=== PATIENT | female | born 1980 | race Two or more races ===

== ENCOUNTER 2020-04-05 20:17 | Emergency (ER) | payer MEDICARE, MEDICAID ==
[~2020-04-05] VITALS: Ht 170.2 cm; Wt 81.6 kg
[2020-04-05 22:12] LABS: Basophils # (auto) 0.1 10 ^3/uL (0-0.2); Basophils % (auto) 0.6 % (0.0-2.0); Hemoglobin 8.8 g/dL (12.2-16.2); Monocytes # (auto) 0.7 10 ^3/uL (0-1.3); White Blood Cell 21.3 10^3/uL (4.4-10.8)
[2020-04-05 22:14] LABS: Eosinophils # (auto) 0 10 ^3/uL (0-0.8); Eosinophils % (auto) 0.2 % (0.0-7.0); Hematocrit 26.7 % (36.0-46.0); Lymphocytes # (auto) 1.3 10 ^3/uL (0.4-5.4); Lymphocytes % (auto) 6.1 % (10.0-50.0); Mean Corpuscular Hemoglobin 29.6 pg (28.0-32.0); Mean Corpuscular Hgb Conc. 33.1 g/dL (32.0-36.0); Mean Corpuscular Volume 89.5 fL (80.0-100.0); Monocytes % (auto) 3.1 % (0.0-12.0); Neutrophils # (auto) 19.2 10 ^3/uL (1.6-8.6); Platelet Count (auto) 481 10^3/uL (140-450); Red Blood Cells 2.99 10^6/uL (4.0-5.20); Red Cell Distribution Width 14.8 % (11.8-14.3)
[2020-04-05 22:31] LABS: BUN/Creatinine Ratio 5.8; Calcium 8.7 mg/dL (8.5-10.1); Potassium 3.6 mmol/L (3.5-5.1)
[2020-04-05 22:33] LABS: Bilirubin, Total 0.4 mg/dL (0.2-1.0); Total Protein 8.4 g/dL (6.4-8.2)
[2020-04-05 23:34] LABS: Urine Bacteria FEW /hpf (None Seen); Urine Blood 1+ /uL (Negative); Urine Specific Gravity 1.013 (1.001-1.035); Urine WBC 81 /hpf (0 - 5)
[2020-04-06 05:35] VITALS: BP 163/89
== END 2020-04-06 00:30 | disposition left against medical advice (07) ==
LOC: ER 20:17
DX: R10.30 Lower abdominal pain, unspecified (principal); Z53.21 Procedure and treatment not carried out due to patient leaving prior to being seen by health care provider
CPT/HCPCS: 36415; 80053; 81001; 85025

== ENCOUNTER 2021-03-03 13:44 | Inpatient (IN) | payer MEDICARE, MEDICAID ==
[~2021-03-03] VITALS: Ht 170.2 cm; Wt 80.0 kg
[2021-03-03] MEDS ORDERED: ONDANSETRON HCL 4 MG/2 ML VIAL IV ONE ×2 (14:00→16:00)
[2021-03-03 14:22] LABS: Basophils % (auto) 1.2 % (0.0-2.0)
[2021-03-03 14:23] LABS: Basophils # (auto) 0.2 10 ^3/uL (0-0.2); Eosinophils # (auto) 0.3 10 ^3/uL (0-0.8); Eosinophils % (auto) 1.6 % (0.0-7.0); Hematocrit 24.6 % (36.0-46.0); Hemoglobin 8.4 g/dL (12.2-16.2); Lymphocytes # (auto) 1.6 10 ^3/uL (0.4-5.4); Lymphocytes % (auto) 7.5 % (10.0-50.0); Mean Corpuscular Hemoglobin 29.7 pg (28.0-32.0); Mean Corpuscular Volume 87.3 fL (80.0-100.0); Monocytes # (auto) 1.3 10 ^3/uL (0-1.3); Monocytes % (auto) 6.3 % (0.0-12.0); Neutrophils # (auto) 17.3 10 ^3/uL (1.6-8.6); Neutrophils % (auto) 83.4 % (37.0-80.0); Platelet Count (auto) 659 10^3/uL (140-450); Red Blood Cells 2.82 10^6/uL (4.0-5.20); Red Cell Distribution Width 14.7 % (11.8-14.3); White Blood Cell 20.7 10^3/uL (4.4-10.8)
[2021-03-03 14:37] LABS: INR 1.02 (0.9-1.15); Partial Thromboplastin Time 25.2 sec (23.0-31.2)
[2021-03-03 14:42] LABS: Albumin 2.6 g/dL (3.4-5.0); Calcium 9.1 mg/dL (8.5-10.1); Potassium 3.8 mmol/L (3.5-5.1)
[2021-03-03] MEDS ORDERED: SODIUM CHLORIDE 0.9% 1,000 ML IVB ONE (14:45)
[2021-03-03 14:46] LABS: BUN/Creatinine Ratio 5.9; Bilirubin, Total 0.3 mg/dL (0.2-1.0); Total Protein 8.4 g/dL (6.4-8.2)
[2021-03-03] MEDS ORDERED: MORPHINE SULF INJ 2 MG/ML SYRINGE 1ML IV ONE (16:00)
[2021-03-03] MEDS ORDERED: SODIUM CHLORIDE 0.9% 1,000 ML IV ONE (17:45)
[2021-03-03] MEDS ORDERED: CLINDAMYCIN 600MG IV 50 ML IV ONE (17:45)
[2021-03-03] MEDS ORDERED: MORPHINE SULF INJ 2 MG/ML SYRINGE 1ML IV PRN (22:00)
[2021-03-03] MEDS ORDERED: ACETAMINOPHEN 325 MG TAB PO PRN ×2 (22:00)
[2021-03-03] MEDS ORDERED: NITROGLYCERIN 0.4 MG SL TAB SL PRN (22:00)
[2021-03-03] MEDS ORDERED: FAMOTIDINE 20 MG TAB PO SCH (22:00)
[2021-03-03] MEDS: InsuLIN REG 1unit/0.01ml Soln (100units/ml) SC SCH (22:00)
[2021-03-03] MEDS ORDERED: DEXTROSE (50%) 50ML SYRG IV ONE (22:00)
[2021-03-03] MEDS ORDERED: VANCOMYCIN PER PHARMACY 0 MG IV SCH (22:15)
[2021-03-03] MEDS ORDERED: VANCOMYCIN 1GM/250ML 250 ML IV ONE ×2 (22:45→23:00)
[2021-03-03] MEDS: ACCU-CHEK COMFORT CURVE STRIP VI SCH (23:11)
[2021-03-04 05:48] LABS: Eosinophils # (auto) 0.4 10 ^3/uL (0-0.8); Hemoglobin 7.2 g/dL (12.2-16.2); Lymphocytes # (auto) 1.7 10 ^3/uL (0.4-5.4); Monocytes # (auto) 1.3 10 ^3/uL (0-1.3)
[2021-03-04 05:51] LABS: Basophils # (auto) 0.1 10 ^3/uL (0-0.2); Basophils % (auto) 0.8 % (0.0-2.0); Eosinophils % (auto) 2.4 % (0.0-7.0); Hematocrit 21.4 % (36.0-46.0); Lymphocytes % (auto) 9.7 % (10.0-50.0); Mean Corpuscular Hemoglobin 29.8 pg (28.0-32.0); Mean Corpuscular Hgb Conc. 33.5 g/dL (32.0-36.0); Mean Corpuscular Volume 89.1 fL (80.0-100.0); Monocytes % (auto) 7.6 % (0.0-12.0); Neutrophils # (auto) 13.6 10 ^3/uL (1.6-8.6); Neutrophils % (auto) 79.5 % (37.0-80.0); Platelet Count (auto) 506 10^3/uL (140-450); Red Cell Distribution Width 14.7 % (11.8-14.3); White Blood Cell 17.1 10^3/uL (4.4-10.8)
[2021-03-04] MEDS: ACCU-CHEK COMFORT CURVE STRIP VI SCH ×4 (06:17→20:54)
[2021-03-04] MEDS: InsuLIN REG 1unit/0.01ml Soln (100units/ml) SC SCH ×4 (06:17→20:59)
[2021-03-04] MEDS: HYDROcodone-ACET 5/325MG TAB PO PRN ×2 (06:18→12:10)
[2021-03-04 06:21] LABS: Albumin 2.2 g/dL (3.4-5.0); Calcium 7.6 mg/dL (8.5-10.1); Potassium 3.7 mmol/L (3.5-5.1)
[2021-03-04 06:27] LABS: Bilirubin, Total 0.3 mg/dL (0.2-1.0)
[2021-03-04 09:14] VITALS: BP 154/76
[2021-03-04] MEDS ORDERED: cefTRIAXone 1GM/50ML D5W 50 ML IV SCH (10:00)
[2021-03-04] MEDS ORDERED: FERR1TAB17 PO (12:20)
[2021-03-04] MEDS ORDERED: METO-289 PO (12:20)
[2021-03-04] MEDS ORDERED: CILO100T PO (12:20)
[2021-03-04] MEDS ORDERED: FERR-20 PO (12:31)
[2021-03-04] MEDS ORDERED: NIFE90TA49 PO (12:31)
[2021-03-04] MEDS ORDERED: CIPR500T4 PO (12:31)
[2021-03-04] MEDS ORDERED: CALC0.5C PO (12:31)
[2021-03-04] MEDS ORDERED: LOSA-69 PO (12:31)
[2021-03-04] MEDS ORDERED: LEVO75TA6 PO (12:31)
[2021-03-04] MEDS ORDERED: CLOP75TA70 PO (12:31)
[2021-03-04] MEDS ORDERED: ATOR40TA52 PO (12:31)
[2021-03-04 13:00] VITALS: BP 169/82
[2021-03-04] MEDS ORDERED: ACETAMINOPHEN 325 MG TAB PO PRN (13:00)
[2021-03-04] MEDS: hydrALAZINE HCL 20 MG/ML VL IV PRN ×2 (14:33→21:03)
[2021-03-04 15:12] VITALS: BP 116/70
[2021-03-04 16:43] VITALS: BP 126/70
[2021-03-04] MEDS: traMADol HCL 50 MG TAB PO PRN (18:24)
[2021-03-04] MEDS: PANTOPRAZOLE 40 MG TAB PO SCH (20:53)
[2021-03-04] MEDS: METOCLOPRAMIDE HCL 5MG/ml INJ 2ml VIAL IV SCH (20:53)
[2021-03-04 22:05] VITALS: BP 174/82
[2021-03-04 22:32] LABS: Urine Bacteria MOD /hpf (None Seen); Urine Blood 3+ /uL (Negative); Urine Hyaline Cast FEW /lpf (0 - 2); Urine Specific Gravity 1.012 (1.001-1.035); Urine WBC 29 /hpf (0 - 5)
[2021-03-05 05:21] VITALS: BP 173/89
[2021-03-05 05:57] LABS: Basophils # (auto) 0.2 10 ^3/uL (0-0.2); Eosinophils # (auto) 0.4 10 ^3/uL (0-0.8); Eosinophils % (auto) 2.2 % (0.0-7.0); Hematocrit 23.6 % (36.0-46.0); Hemoglobin 7.9 g/dL (12.2-16.2); Lymphocytes # (auto) 1.2 10 ^3/uL (0.4-5.4); Lymphocytes % (auto) 6.6 % (10.0-50.0); Mean Corpuscular Hemoglobin 29.6 pg (28.0-32.0); Mean Corpuscular Hgb Conc. 33.5 g/dL (32.0-36.0); Mean Corpuscular Volume 88.4 fL (80.0-100.0); Monocytes # (auto) 1.3 10 ^3/uL (0-1.3); Monocytes % (auto) 6.9 % (0.0-12.0); Neutrophils # (auto) 15.1 10 ^3/uL (1.6-8.6); Neutrophils % (auto) 83.3 % (37.0-80.0); Platelet Count (auto) 551 10^3/uL (140-450); Red Blood Cells 2.67 10^6/uL (4.0-5.20); Red Cell Distribution Width 14.9 % (11.8-14.3); White Blood Cell 18.1 10^3/uL (4.4-10.8)
[2021-03-05] MEDS: ACCU-CHEK COMFORT CURVE STRIP VI SCH ×4 (06:02→21:52)
[2021-03-05] MEDS: InsuLIN REG 1unit/0.01ml Soln (100units/ml) SC SCH ×4 (06:02→21:52)
[2021-03-05 06:48] VITALS: BP 153/80
[2021-03-05] MEDS: traMADol HCL 50 MG TAB PO PRN (07:55)
[2021-03-05 09:00] VITALS: BP 158/81
[2021-03-05] MEDS: METOCLOPRAMIDE HCL 5MG/ml INJ 2ml VIAL IV SCH ×3 (10:22→21:51)
[2021-03-05] MEDS: GABAPENTIN 300 MG CAP PO SCH ×2 (10:22→21:52)
[2021-03-05] MEDS: PANTOPRAZOLE 40 MG TAB PO SCH ×2 (10:22→21:52)
[2021-03-05] MEDS ORDERED: PROMETHAZINE HCL 25 MG/ML 1ML IV PRN (11:15)
[2021-03-05 13:00] VITALS: BP 144/86
[2021-03-05 17:10] VITALS: BP 148/80
[2021-03-05] MEDS: PERITONEAL DIALYSIS 2.5% SOLN 2,000 ML IP SCH (17:41)
[2021-03-05 22:19] VITALS: BP 153/109
[2021-03-06] MEDS: PERITONEAL DIALYSIS 2.5% SOLN 2,000 ML IP SCH ×4 (00:05→18:31)
[2021-03-06 05:04] VITALS: BP 130/74
[2021-03-06 06:04] LABS: % Iron Saturation 29.3 % (15-50)
[2021-03-06] MEDS: InsuLIN REG 1unit/0.01ml Soln (100units/ml) SC SCH ×4 (06:37→21:17)
[2021-03-06] MEDS: ACCU-CHEK COMFORT CURVE STRIP VI SCH ×4 (06:37→21:17)
[2021-03-06 09:00] VITALS: BP 146/83
[2021-03-06] MEDS: METOCLOPRAMIDE HCL 5MG/ml INJ 2ml VIAL IV SCH ×2 (10:00→21:16)
[2021-03-06] MEDS: PANTOPRAZOLE 40 MG TAB PO SCH ×2 (10:00→21:16)
[2021-03-06] MEDS: GABAPENTIN 300 MG CAP PO SCH ×2 (10:01→21:16)
[2021-03-06 13:00] VITALS: BP 118/74
[2021-03-06] MEDS: traMADol HCL 50 MG TAB PO PRN (16:11)
[2021-03-06 17:17] VITALS: BP 137/74
[2021-03-06 22:00] VITALS: BP 139/81
[2021-03-07 05:00] VITALS: BP 137/72
[2021-03-07] MEDS: PERITONEAL DIALYSIS 2.5% SOLN 2,000 ML IP SCH ×4 (06:34→18:29)
[2021-03-07] MEDS: InsuLIN REG 1unit/0.01ml Soln (100units/ml) SC SCH ×4 (07:00→21:04)
[2021-03-07] MEDS: ACCU-CHEK COMFORT CURVE STRIP VI SCH ×4 (07:05→20:56)
[2021-03-07 09:00] VITALS: BP 138/84
[2021-03-07] MEDS: PANTOPRAZOLE 40 MG TAB PO SCH ×2 (10:46→20:56)
[2021-03-07] MEDS: GABAPENTIN 300 MG CAP PO SCH ×2 (10:47→20:55)
[2021-03-07] MEDS: METOCLOPRAMIDE HCL 5MG/ml INJ 2ml VIAL IV SCH ×2 (10:47→20:55)
[2021-03-07] MEDS: ONDANSETRON HCL 4 MG/2 ML VIAL IV PRN (12:27)
[2021-03-07 13:00] VITALS: BP 115/74
[2021-03-07 17:00] VITALS: BP 133/82
[2021-03-07 22:00] VITALS: BP 131/59
[2021-03-08] MEDS: PERITONEAL DIALYSIS 2.5% SOLN 2,000 ML IP SCH ×4 (00:28→12:05)
[2021-03-08 05:00] VITALS: BP 133/80
[2021-03-08 05:49] LABS: Basophils # (auto) 0.1 10 ^3/uL (0-0.2); Basophils % (auto) 0.8 % (0.0-2.0); Eosinophils # (auto) 0.4 10 ^3/uL (0-0.8); Eosinophils % (auto) 2.3 % (0.0-7.0); Hematocrit 22.3 % (36.0-46.0); Hemoglobin 7.6 g/dL (12.2-16.2); Lymphocytes # (auto) 1.4 10 ^3/uL (0.4-5.4); Lymphocytes % (auto) 8.5 % (10.0-50.0); Mean Corpuscular Hemoglobin 30.1 pg (28.0-32.0); Mean Corpuscular Hgb Conc. 34.2 g/dL (32.0-36.0); Monocytes # (auto) 1.3 10 ^3/uL (0-1.3); Monocytes % (auto) 7.8 % (0.0-12.0); Neutrophils # (auto) 13.5 10 ^3/uL (1.6-8.6); Neutrophils % (auto) 80.6 % (37.0-80.0); Platelet Count (auto) 469 10^3/uL (140-450); Red Blood Cells 2.53 10^6/uL (4.0-5.20); Red Cell Distribution Width 14.8 % (11.8-14.3); White Blood Cell 16.8 10^3/uL (4.4-10.8)
[2021-03-08] MEDS: InsuLIN REG 1unit/0.01ml Soln (100units/ml) SC SCH ×2 (06:09→11:51)
[2021-03-08] MEDS: ACCU-CHEK COMFORT CURVE STRIP VI SCH ×2 (06:10→11:48)
[2021-03-08 06:17] LABS: BUN/Creatinine Ratio 5.9; Calcium 7.8 mg/dL (8.5-10.1); Potassium 3.8 mmol/L (3.5-5.1)
[2021-03-08 09:00] VITALS: BP 121/74
[2021-03-08] MEDS: PANTOPRAZOLE 40 MG TAB PO SCH (09:23)
[2021-03-08] MEDS: METOCLOPRAMIDE HCL 5MG/ml INJ 2ml VIAL IV SCH (09:23)
[2021-03-08] MEDS: GABAPENTIN 300 MG CAP PO SCH (09:23)
[2021-03-08] MEDS: ONDANSETRON HCL 4 MG/2 ML VIAL IV PRN (11:52)
[2021-03-08 13:00] VITALS: BP 110/66
[2021-03-08] MEDS ORDERED: METOCLOPRAMIDE HCL 10 MG TAB PO SCH (14:00)
[2021-03-08 14:42] VITALS: BP 110/66
== END 2021-03-08 16:20 | disposition home or self-care (01) | DRG 637 ==
LOC: EDBD 13:44 → ER 13:44 → TELE 21:51 → TELE-WESTW 23:10
PROVIDERS: ADMIT Nurse Practitioner; ATTEND Nurse Practitioner
DX: E11.69 Type 2 diabetes mellitus with other specified complication (principal); G93.41 Metabolic encephalopathy; K85.90 Acute pancreatitis without necrosis or infection, unspecified; D68.9 Coagulation defect, unspecified; N39.0 Urinary tract infection, site not specified; I12.0 Hypertensive chronic kidney disease with stage 5 chronic kidney disease or end stage renal disease; K31.84 Gastroparesis; N18.6 End stage renal disease; E11.43 Type 2 diabetes mellitus with diabetic autonomic (poly)neuropathy; R11.14 Bilious vomiting; Z99.2 Dependence on renal dialysis; D47.3 Essential (hemorrhagic) thrombocythemia; Z89.429 Acquired absence of other toe(s), unspecified side; E78.5 Hyperlipidemia, unspecified; D64.9 Anemia, unspecified; D63.1 Anemia in chronic kidney disease; E11.22 Type 2 diabetes mellitus with diabetic chronic kidney disease; E11.51 Type 2 diabetes mellitus with diabetic peripheral angiopathy without gangrene; F17.200 Nicotine dependence, unspecified, uncomplicated; F41.9 Anxiety disorder, unspecified; G25.3 Myoclonus; G54.6 Phantom limb syndrome with pain; K29.70 Gastritis, unspecified, without bleeding; F32.9 Major depressive disorder, single episode, unspecified; Z83.3 Family history of diabetes mellitus; Z89.422 Acquired absence of other left toe(s); Z79.899 Other long term (current) drug therapy; Z79.891 Long term (current) use of opiate analgesic; Z79.01 Long term (current) use of anticoagulants
CPT/HCPCS: 36415; 71045; 74176; 76705; 78264; 80048; 80053; 80202; 81001; 82565; 82962; 83540; 83550; 83605; 83690; 83735; 84702; 85025; 85049; 85610; 85730; 87040; 87081; 87426; 96361; 96374; 96375; 99291; G0378; J1815; J2405; J3490

== ENCOUNTER 2021-09-16 17:26 | Emergency (ER) | payer MEDICARE, MEDICAID ==
[~2021-09-16] VITALS: Ht 152.4 cm; Wt 56.7 kg
[~2021-09-16 17:26] MED LIST: ATOR40TA52 PO; CALC0.5C PO; CILO100T PO; CIPR500T4 PO; CLOP75TA70 PO; FERR-20 PO; FERR1TAB17 PO; LEVO75TA6 PO; LOSA-69 PO; METO-289 PO; NIFE90TA49 PO
[2021-09-16 22:37] LABS: Red Blood Cells 2.32 10^6/uL (4.0-5.20)
[2021-09-16 22:40] LABS: Hematocrit 20.9 % (36.0-46.0); Mean Corpuscular Hemoglobin 28.9 pg (28.0-32.0); Mean Corpuscular Hgb Conc. 32.1 g/dL (32.0-36.0); Mean Corpuscular Volume 90.1 fL (80.0-100.0); Red Cell Distribution Width 14.9 % (11.8-14.3)
[2021-09-16 22:48] LABS: Hemoglobin 6.7 g/dL (12.2-16.2); White Blood Cell 30.8 10^3/uL (4.4-10.8)
[2021-09-16 22:50] LABS: Basophils % (manual) 0 (0.0-2.0); Blast Cells 0; Eosinophils % (manual) 0 (0-7); Metamyelocytes % 0; Myelocytes % 0; Promyelocytes % 0; Reactive Lymphocytes 0
[2021-09-16 22:59] LABS: Albumin 1.6 g/dL (3.4-5.0); Anion Gap 20 (5-15); Blood Urea Nitrogen 65 mg/dL (7-18); Calcium 9.4 mg/dL (8.5-10.1); Carbon Dioxide 26 mmol/L (21-32); Chloride 86 mmol/L (98-107); Glucose 114 mg/dL (74-106); Sodium 132 mmol/L (136-145)
[2021-09-16 23:01] LABS: Alanine Aminotransferase 16 U/L (13-56); Aspartate Aminotransferase 5 U/L (15-37); BUN/Creatinine Ratio 9.3; GFR African American 8 mL/min; GFR Non-African American 7 mL/min
[2021-09-16 23:04] LABS: Alkaline Phosphatase 464 U/L (45-117); Bilirubin, Total 0.4 mg/dL (0.2-1.0); Total Protein 6.1 g/dL (6.4-8.2)
[2021-09-16 23:11] LABS: Potassium 2.9 mmol/L (3.5-5.1)
[2021-09-16 23:15] LABS: CRP High Sensitivity > 19.0 mg/dL (< 0.3)
[2021-09-16 23:59] LABS: Band Neutrophils % (manual) 9; Lymphocytes % (manual) 3 (10.0-50.0); Monocytes % (manual) 3 (0-12)
[2021-09-17] MEDS ORDERED: VANCOMYCIN 1GM/250ML 250 ML IV ONE
[2021-09-17] MEDS ORDERED: POTASSIUM EFFERVESENT TAB 25 MEQ PO ONE
[2021-09-17] MEDS ORDERED: LINEZOLID 600MG/300ML 300 ML IV ONE (00:34)
[2021-09-17] MEDS: POTASSIUM CHL 20MEQ/50ML 50 ML IV SCH ×2 (00:35→02:40)
[2021-09-17] MEDS: LINEZOLID 600MG/300ML 300 ML IV SCH ×2 (00:36→22:23)
[2021-09-17] MEDS ORDERED: HYDROmorphone HCL 2 MG/ML VL IV ONE ×3 (04:00→09:45)
[2021-09-17] MEDS ORDERED: ONDANSETRON HCL 4 MG/2 ML VIAL IV ONE ×2 (04:15→09:45)
[2021-09-17 05:25] VITALS: BP 125/71
[2021-09-17 05:43] VITALS: BP 124/69
[2021-09-17] MEDS ORDERED: PIPERACILLIN-TAZOB 3.375GM 100 ML IV ONE ×2 (11:45)
[2021-09-17] MEDS ORDERED: CLINDAMYCIN 600MG IV 50 ML IV ONE ×2 (11:45)
[2021-09-17 14:14] LABS: Hemoglobin 7.8 g/dL (12.2-16.2)
[2021-09-17 14:15] LABS: Hematocrit 24.3 % (36.0-46.0); Mean Corpuscular Hemoglobin 28.6 pg (28.0-32.0); Mean Corpuscular Hgb Conc. 32.2 g/dL (32.0-36.0); Mean Corpuscular Volume 88.6 fL (80.0-100.0); Red Blood Cells 2.74 10^6/uL (4.0-5.20); Red Cell Distribution Width 15.2 % (11.8-14.3)
[2021-09-17 14:59] LABS: Basophils % (manual) 0 (0.0-2.0); Blast Cells 0; Eosinophils % (manual) 0 (0-7); Metamyelocytes % 0; Myelocytes % 0; Promyelocytes % 0; Reactive Lymphocytes 0; White Blood Cell 30.3 10^3/uL (4.4-10.8)
[2021-09-17] MEDS ORDERED: HYDROmorphone HCL 2 MG/ML VL IM ONE (17:45)
[2021-09-17 18:39] LABS: Band Neutrophils % (manual) 1; Lymphocytes % (manual) 4 (10.0-50.0); Monocytes % (manual) 4 (0-12)
[2021-09-18] MEDS ORDERED: HYDROmorphone HCL 2 MG/ML VL IV ONE (02:00)
[2021-09-18] MEDS ORDERED: HYDROmorphone HCL 2 MG/ML VL ONE (02:33)
[2021-09-18] MEDS: HYDROmorphone HCL 2 MG/ML VL IV PRN ×3 (08:10→16:16)
[2021-09-18] MEDS: LINEZOLID 600MG/300ML 300 ML IV SCH (11:55)
[2021-09-18] MEDS ORDERED: DEXTROSE 50% SYRINGE 0 ML IV ONE (12:36)
[2021-09-18 16:16] VITALS: BP 163/55
== END 2021-09-18 16:30 | disposition short-term general hospital (02) ==
LOC: ER 17:26 → EDBD 17:26 → ER 09-18 16:30
DX: T87.43 Infection of amputation stump, right lower extremity (principal); E11.22 Type 2 diabetes mellitus with diabetic chronic kidney disease; I12.0 Hypertensive chronic kidney disease with stage 5 chronic kidney disease or end stage renal disease; N18.6 End stage renal disease; Z20.822 Contact with and (suspected) exposure to COVID-19
CPT/HCPCS: 36415; 80053; 82962; 83605; 84132; 84702; 85007; 85027; 85652; 86141; 86850; 86900; 86901; 86920; 87040; 87426; 96365; 96366; 96368; 96372; 96375; 96376; 99291; C9803; J1170; J2020; J2543; J3480; J3490; J7030; P9016; U0003; 73700; J2405

== ENCOUNTER 2023-01-11 11:19 | Inpatient (IN) | payer MEDICARE, MEDICAID ==
[~2023-01-11] VITALS: Ht 165.1 cm; Wt 59.6 kg
[~2023-01-11 11:19] MED LIST changes: +ASPI-325 PO; -CIPR500T4 PO; +DOCU100C10 PO; +LISI40TA11 PO
[2023-01-11] MEDS ORDERED: LORazepam 2MG/ML-1ML VIAL IV ONE (11:30)
[2023-01-11 12:24] LABS: Basophils # (auto) 0.2 10 ^3/uL (0-0.2); Eosinophils # (auto) 0.3 10 ^3/uL (0-0.8); Eosinophils % (auto) 1.8 % (0.0-7.0); Hemoglobin 10.7 g/dL (12.2-16.2); Lymphocytes # (auto) 0.6 10 ^3/uL (0.4-5.4); Monocytes # (auto) 1.3 10 ^3/uL (0-1.3); White Blood Cell 15.7 10^3/uL (4.4-10.8)
[2023-01-11 12:26] LABS: Hematocrit 33.6 % (36.0-46.0); Lymphocytes % (auto) 3.7 % (10.0-50.0); Mean Corpuscular Hemoglobin 28.8 pg (28.0-32.0); Mean Corpuscular Hgb Conc. 31.9 g/dL (32.0-36.0); Mean Corpuscular Volume 90.3 fL (80.0-100.0); Monocytes % (auto) 8.2 % (0.0-12.0); Neutrophils # (auto) 13.4 10 ^3/uL (1.6-8.6); Neutrophils % (auto) 85.3 % (37.0-80.0); Red Blood Cells 3.72 10^6/uL (4.0-5.20); Red Cell Distribution Width 13.6 % (11.8-14.3)
[2023-01-11 12:47] LABS: INR 0.96 (0.9-1.15); Partial Thromboplastin Time 29.9 sec (24.6-33.4)
[2023-01-11] MEDS ORDERED: PIPERACILLIN-TAZOB 3.375GM 100 ML IV ONE (13:00)
[2023-01-11 13:32] LABS: Albumin 2.5 g/dL (3.4-5.0); Anion Gap 12 (5-15); Blood Urea Nitrogen 43 mg/dL (7-18); Calcium 10.2 mg/dL (8.5-10.1); Carbon Dioxide 25 mmol/L (21-32); Chloride 96 mmol/L (98-107); Glucose 87 mg/dL (74-106); Magnesium 2.5 mg/dL (1.6-2.6); Potassium 4.3 mmol/L (3.5-5.1); Sodium 133 mmol/L (136-145)
[2023-01-11 13:44] LABS: Alanine Aminotransferase 8 U/L (13-56); Alkaline Phosphatase 307 U/L (45-117); Aspartate Aminotransferase 12 U/L (15-37); BUN/Creatinine Ratio 8.1 (10.0-20.0); Bilirubin, Total 0.4 mg/dL (0.2-1.0); Blood Alcohol < 3.0 mg/dL (0-5); GFR African American 11 mL/min; GFR Non-African American 9 mL/min; Salicylate 5.8 mg/dL (2.8-20.0); Total Protein 7.9 g/dL (6.4-8.2)
[2023-01-11 13:45] LABS: Acetaminophen < 2.0 ug/mL (10-30)
[2023-01-11] MEDS ORDERED: MORPHINE SULFATE INJ 2 MG/ml SYRG IV PRN (15:30)
[2023-01-11] MEDS ORDERED: NITROGLYCERIN 0.4 MG SL TAB SL PRN (15:30)
[2023-01-11] MEDS ORDERED: ACETAMINOPHEN 325 MG TAB PO PRN (15:30)
[2023-01-11] MEDS ORDERED: VANCOMYCIN PER PHARMACY 0 MG IV SCH (15:45)
[2023-01-11] MEDS ORDERED: PANTOPRAZOLE 40 MG/10 ML VIAL INJ IV ONE (15:45)
[2023-01-11] MEDS: FERROUS SULFATE 325mg EC TAB PO SCH (18:00)
[2023-01-11] MEDS: hydrALAZINE HCL 20 MG/ML VL IV PRN (20:26)
[2023-01-11] MEDS: PIPERACILLIN-TAZOB 2.25GM 50 ML IV SCH (21:56)
[2023-01-11] MEDS: ATORVASTATIN 20 MG TAB PO SCH (22:30)
[2023-01-11] MEDS: METOPROLOL SUCCINATE XL 50 MG TAB PO SCH (22:30)
[2023-01-12] MEDS ORDERED: dilTIAZem 25 MG/5 ML VIAL IV ONE (02:00)
[2023-01-12] MEDS: hydrALAZINE HCL 20 MG/ML VL IV PRN ×3 (02:09→19:57)
[2023-01-12 05:33] LABS: Basophils # (auto) 0.2 10 ^3/uL (0-0.2); Eosinophils # (auto) 0.3 10 ^3/uL (0-0.8); Hemoglobin 10.5 g/dL (12.2-16.2); Lymphocytes # (auto) 0.6 10 ^3/uL (0.4-5.4); Mean Corpuscular Volume 88.9 fL (80.0-100.0); Monocytes # (auto) 1.4 10 ^3/uL (0-1.3); Red Cell Distribution Width 13.6 % (11.8-14.3); White Blood Cell 14.7 10^3/uL (4.4-10.8)
[2023-01-12 05:35] LABS: Basophils % (auto) 1.1 % (0.0-2.0); Eosinophils % (auto) 1.7 % (0.0-7.0); Hematocrit 32.6 % (36.0-46.0); Lymphocytes % (auto) 4.2 % (10.0-50.0); Mean Corpuscular Hemoglobin 28.6 pg (28.0-32.0); Mean Corpuscular Hgb Conc. 32.1 g/dL (32.0-36.0); Monocytes % (auto) 9.8 % (0.0-12.0); Neutrophils # (auto) 12.2 10 ^3/uL (1.6-8.6); Neutrophils % (auto) 83.2 % (37.0-80.0); Nucleated Red Blood Cells % 0.1 %; Red Blood Cells 3.67 10^6/uL (4.0-5.20)
[2023-01-12 05:49] LABS: Albumin 2.3 g/dL (3.4-5.0); Calcium 10.4 mg/dL (8.5-10.1); Potassium 4.4 mmol/L (3.5-5.1)
[2023-01-12 05:53] LABS: BUN/Creatinine Ratio 8.3 (10.0-20.0); Bilirubin, Total 0.4 mg/dL (0.2-1.0); Total Protein 8.2 g/dL (6.4-8.2)
[2023-01-12] MEDS: FERROUS SULFATE 325mg EC TAB PO SCH ×2 (08:37→18:00)
[2023-01-12] MEDS ORDERED: CLOPIDOGREL BISULFATE 75 MG TAB PO SCH (10:00)
[2023-01-12] MEDS: LOSARTAN POTASSIUM 50 MG TAB PO SCH (10:00)
[2023-01-12] MEDS ORDERED: ASPirin-EC 81 mg tab PO SCH (10:00)
[2023-01-12] MEDS ORDERED: CALCITRIOL 0.5 MCG PO SCH (10:00)
[2023-01-12] MEDS: METOPROLOL SUCCINATE XL 50 MG TAB PO SCH ×2 (10:00→22:00)
[2023-01-12] MEDS: NIFEdipine ER 30 MG TAB PO SCH (10:00)
[2023-01-12] MEDS: CILOSTAZOL 100 MG TAB PO SCH (10:00)
[2023-01-12] MEDS ORDERED: ENOXAPARIN SOD 30 MG/0.3 ML SYRINGE SC SCH (10:00)
[2023-01-12] MEDS: PIPERACILLIN-TAZOB 2.25GM 50 ML IV SCH (10:15)
[2023-01-12] MEDS: PANTOPRAZOLE 40 MG/10 ML VIAL INJ IV SCH (10:16)
[2023-01-12] MEDS ORDERED: cloNIDine 0.3 mg/24hr 7DAY PATCH TD SCH (16:15)
[2023-01-12] MEDS: cloNIDine 0.1 mg/24hr 7 DAY PATCH TD SCH (16:15)
[2023-01-12] MEDS ORDERED: DEXTROSE 10% 250 ML IV ONE (16:24)
[2023-01-12] MEDS ORDERED: VANCOMYCIN PER PHARMACY 0 MG IV SCH (16:30)
[2023-01-12] MEDS: DEXTROSE 10% 1,000 ML IV SCH (16:35)
[2023-01-12] MEDS ORDERED: ASPirin 300 MG RECTAL SUPP PR ONE (18:30)
[2023-01-12] MEDS: LABETALOL HCL 5 MG/ML 4ML SYRINGE IV PRN (20:37)
[2023-01-12] MEDS: ATORVASTATIN 20 MG TAB PO SCH (22:00)
[2023-01-12 22:22] VITALS: BP 159/61
[2023-01-12 23:06] VITALS: BP 159/61
[2023-01-13] MEDS: PIPERACILLIN-TAZOB 2.25GM 50 ML IV SCH ×3 (00:52→21:12)
[2023-01-13 05:00] VITALS: BP 172/72
[2023-01-13] MEDS: HEPARIN SODIUM (PORCINE) 5000 UNITS/ML 1ML VIAL SC SCH ×3 (06:42→21:11)
[2023-01-13 06:47] LABS: Hemoglobin 10.3 g/dL (12.2-16.2)
[2023-01-13] MEDS: LEVOTHYROXINE SODIUM 25 MCG TAB PO SCH (06:55)
[2023-01-13] MEDS ORDERED: SODIUM CHL 0.9% 1000 ML BAG XX ONE (07:00)
[2023-01-13] MEDS ORDERED: LEVOTHYROXINE SODIUM 25 MCG TAB PO SCH (07:00)
[2023-01-13] MEDS: LABETALOL HCL 5 MG/ML 4ML SYRINGE IV PRN (07:36)
[2023-01-13] MEDS: FERROUS SULFATE 325mg EC TAB PO SCH ×2 (08:00→17:40)
[2023-01-13 09:00] VITALS: BP 188/78
[2023-01-13] MEDS: METOPROLOL SUCCINATE XL 50 MG TAB PO SCH ×2 (10:00→22:00)
[2023-01-13] MEDS: LOSARTAN POTASSIUM 50 MG TAB PO SCH (10:00)
[2023-01-13] MEDS: NIFEdipine ER 30 MG TAB PO SCH (10:00)
[2023-01-13] MEDS ORDERED: LEVOTHYROXINE SODIUM 100 MCG/5 ML INJ IV SCH (10:00)
[2023-01-13] MEDS: MORPHINE SULFATE 4 MG/ML SYR/VIAL IV PRN (10:14)
[2023-01-13] MEDS: PANTOPRAZOLE 40 MG/10 ML VIAL INJ IV SCH (12:44)
[2023-01-13 13:17] VITALS: BP 140/78
[2023-01-13] MEDS: DEXTROSE 10% 1,000 ML IV SCH (16:15)
[2023-01-13 17:00] VITALS: BP 152/84
[2023-01-13] MEDS: ASPirin 300 MG RECTAL SUPP PR SCH (18:00)
[2023-01-13] MEDS ORDERED: VANCOMYCIN 500 MG in D5W 5% 100 ML IV ONE (20:00)
[2023-01-13] MEDS ORDERED: EPOETIN ALFA-EPBX 4,000 UNIT/ML VIAL SC ONE (21:00)
[2023-01-13 22:00] VITALS: BP 152/80
[2023-01-13] MEDS: ATORVASTATIN 20 MG TAB PO SCH (22:00)
[2023-01-14 05:41] VITALS: BP 142/82
[2023-01-14] MEDS: LEVOTHYROXINE SODIUM 25 MCG TAB PO SCH (06:58)
[2023-01-14] MEDS: HEPARIN SODIUM (PORCINE) 5000 UNITS/ML 1ML VIAL SC SCH ×3 (06:58→22:10)
[2023-01-14] MEDS: FERROUS SULFATE 325mg EC TAB PO SCH ×2 (08:00→17:58)
[2023-01-14 09:00] VITALS: BP 184/82
[2023-01-14] MEDS: PANTOPRAZOLE 40 MG/10 ML VIAL INJ IV SCH (09:33)
[2023-01-14] MEDS: MORPHINE SULFATE 4 MG/ML SYR/VIAL IV PRN ×2 (09:34→17:44)
[2023-01-14] MEDS: PIPERACILLIN-TAZOB 2.25GM 50 ML IV SCH ×2 (09:34→22:09)
[2023-01-14] MEDS: METOPROLOL SUCCINATE XL 50 MG TAB PO SCH ×2 (09:35→22:09)
[2023-01-14] MEDS: NIFEdipine ER 30 MG TAB PO SCH (09:35)
[2023-01-14] MEDS: LOSARTAN POTASSIUM 50 MG TAB PO SCH (09:35)
[2023-01-14 13:00] VITALS: BP 136/85
[2023-01-14 15:40] VITALS: BP 147/78
[2023-01-14] MEDS: DEXTROSE 10% 1,000 ML IV SCH (16:15)
[2023-01-14 16:53] VITALS: BP 136/73
[2023-01-14] MEDS: ASPirin 300 MG RECTAL SUPP PR SCH (17:58)
[2023-01-14 22:00] VITALS: BP 144/74
[2023-01-14] MEDS: ATORVASTATIN 20 MG TAB PO SCH (22:09)
[2023-01-15 05:00] VITALS: BP 139/60
[2023-01-15] MEDS: LEVOTHYROXINE SODIUM 25 MCG TAB PO SCH (06:02)
[2023-01-15] MEDS: HEPARIN SODIUM (PORCINE) 5000 UNITS/ML 1ML VIAL SC SCH ×3 (06:02→21:58)
[2023-01-15 09:00] VITALS: BP 156/65
[2023-01-15] MEDS: PIPERACILLIN-TAZOB 2.25GM 50 ML IV SCH ×2 (09:53→21:51)
[2023-01-15] MEDS: PANTOPRAZOLE 40 MG/10 ML VIAL INJ IV SCH (09:53)
[2023-01-15] MEDS: MORPHINE SULFATE 4 MG/ML SYR/VIAL IV PRN ×3 (09:54→22:23)
[2023-01-15] MEDS: ONDANSETRON HCL 4 MG/2 ML VIAL IV PRN ×3 (09:54→20:52)
[2023-01-15] MEDS: NIFEdipine ER 30 MG TAB PO SCH (09:55)
[2023-01-15] MEDS: FERROUS SULFATE 325mg EC TAB PO SCH ×2 (09:55→17:52)
[2023-01-15] MEDS: LOSARTAN POTASSIUM 50 MG TAB PO SCH (09:55)
[2023-01-15] MEDS: METOPROLOL SUCCINATE XL 50 MG TAB PO SCH ×2 (09:55→21:51)
[2023-01-15 13:00] VITALS: BP 168/78
[2023-01-15 13:25] LABS: Basophils # (auto) 0.2 10 ^3/uL (0-0.2); Eosinophils # (auto) 0.3 10 ^3/uL (0-0.8); Lymphocytes # (auto) 0.9 10 ^3/uL (0.4-5.4)
[2023-01-15 13:27] LABS: Basophils % (auto) 1.6 % (0.0-2.0); Eosinophils % (auto) 2.6 % (0.0-7.0); Hematocrit 31.2 % (36.0-46.0); Hemoglobin 9.9 g/dL (12.2-16.2); Lymphocytes % (auto) 8.1 % (10.0-50.0); Mean Corpuscular Hemoglobin 28.3 pg (28.0-32.0); Mean Corpuscular Hgb Conc. 31.8 g/dL (32.0-36.0); Monocytes # (auto) 1.1 10 ^3/uL (0-1.3); Monocytes % (auto) 9.3 % (0.0-12.0); Neutrophils # (auto) 9.1 10 ^3/uL (1.6-8.6); Neutrophils % (auto) 78.4 % (37.0-80.0); Red Blood Cells 3.51 10^6/uL (4.0-5.20); Red Cell Distribution Width 13.3 % (11.8-14.3); White Blood Cell 11.6 10^3/uL (4.4-10.8)
[2023-01-15 14:01] LABS: Alkaline Phosphatase 206 U/L (45-117); Bilirubin, Total 0.5 mg/dL (0.2-1.0); Glucose 89 mg/dL (74-106)
[2023-01-15] MEDS: CLOPIDOGREL BISULFATE 75 MG TAB PO SCH (14:18)
[2023-01-15] MEDS: ASPirin 81 mg TAB PO SCH (14:18)
[2023-01-15 15:59] LABS: Anion Gap 12 (5-15); Blood Urea Nitrogen 37 mg/dL (7-18); Carbon Dioxide 27 mmol/L (21-32); Chloride 94 mmol/L (98-107); Potassium 3.9 mmol/L (3.5-5.1); Sodium 133 mmol/L (136-145)
[2023-01-15 16:00] LABS: Alanine Aminotransferase < 6 U/L (13-56); Albumin 2.1 g/dL (3.4-5.0); Aspartate Aminotransferase 10 U/L (15-37); GFR African American 11 mL/min; GFR Non-African American 9 mL/min
[2023-01-15] MEDS: DEXTROSE 10% 1,000 ML IV SCH (16:15)
[2023-01-15 17:00] VITALS: BP 144/71
[2023-01-15 20:00] VITALS: BP 143/71
[2023-01-15] MEDS: ATORVASTATIN 20 MG TAB PO SCH (21:51)
[2023-01-15 22:00] VITALS: BP 150/79
[2023-01-16] MEDS: ONDANSETRON HCL 4 MG/2 ML VIAL IV PRN (01:56)
[2023-01-16 05:00] VITALS: BP 125/52
[2023-01-16] MEDS: HEPARIN SODIUM (PORCINE) 5000 UNITS/ML 1ML VIAL SC SCH ×3 (05:36→22:00)
[2023-01-16 05:55] LABS: BUN/Creatinine Ratio 7.2 (10.0-20.0); Calcium 9.7 mg/dL (8.5-10.1); Potassium 4.1 mmol/L (3.5-5.1)
[2023-01-16] MEDS: LEVOTHYROXINE SODIUM 25 MCG TAB PO SCH (06:19)
[2023-01-16] MEDS ORDERED: SODIUM CHL 0.9% 1000 ML BAG XX ONE (07:00)
[2023-01-16 08:00] VITALS: BP 107/52
[2023-01-16] MEDS: LOSARTAN POTASSIUM 50 MG TAB PO SCH (09:00)
[2023-01-16] MEDS: METOPROLOL SUCCINATE XL 50 MG TAB PO SCH ×2 (09:01→22:00)
[2023-01-16] MEDS: NIFEdipine ER 30 MG TAB PO SCH (09:01)
[2023-01-16] MEDS: PIPERACILLIN-TAZOB 2.25GM 50 ML IV SCH (09:09)
[2023-01-16] MEDS: FERROUS SULFATE 325mg EC TAB PO SCH ×2 (09:09→17:45)
[2023-01-16] MEDS: ASPirin 81 mg TAB PO SCH (09:09)
[2023-01-16] MEDS: CILOSTAZOL 100 MG TAB PO SCH (09:09)
[2023-01-16] MEDS: CLOPIDOGREL BISULFATE 75 MG TAB PO SCH (09:09)
[2023-01-16] MEDS: PANTOPRAZOLE 40 MG/10 ML VIAL INJ IV SCH (09:10)
[2023-01-16 12:00] VITALS: BP 108/68
[2023-01-16] MEDS: HYDROcodone-ACET 5/325MG TAB PO PRN (13:51)
[2023-01-16] MEDS: MEROPENEM 1 GM in SODIUM CHL 0.9% 100 ML IV SCH (15:45)
[2023-01-16 16:00] VITALS: BP 139/82
[2023-01-16] MEDS ORDERED: VANCOMYCIN 500 MG in D5W 5% 100 ML IV ONE ×2 (17:00→20:00)
[2023-01-16] MEDS: MORPHINE SULFATE 4 MG/ML SYR/VIAL IV PRN (17:46)
[2023-01-16 20:00] VITALS: BP 137/48
[2023-01-16 22:00] VITALS: BP 137/48
[2023-01-16] MEDS: ATORVASTATIN 20 MG TAB PO SCH (22:00)
[2023-01-17 05:00] VITALS: BP 161/78
[2023-01-17] MEDS: HEPARIN SODIUM (PORCINE) 5000 UNITS/ML 1ML VIAL SC SCH ×4 (06:00→22:20)
[2023-01-17] MEDS: LEVOTHYROXINE SODIUM 25 MCG TAB PO SCH (06:47)
[2023-01-17 09:00] VITALS: BP 152/82
[2023-01-17] MEDS: ASPirin 81 mg TAB PO SCH (09:24)
[2023-01-17] MEDS: FERROUS SULFATE 325mg EC TAB PO SCH ×2 (09:24→17:56)
[2023-01-17] MEDS: CLOPIDOGREL BISULFATE 75 MG TAB PO SCH (09:24)
[2023-01-17] MEDS: LOSARTAN POTASSIUM 50 MG TAB PO SCH (09:24)
[2023-01-17] MEDS: CILOSTAZOL 100 MG TAB PO SCH (09:25)
[2023-01-17] MEDS: METOPROLOL SUCCINATE XL 50 MG TAB PO SCH ×2 (09:25→22:13)
[2023-01-17] MEDS: NIFEdipine ER 30 MG TAB PO SCH (09:25)
[2023-01-17 13:00] VITALS: BP 158/82
[2023-01-17] MEDS: hydrALAZINE HCL 20 MG/ML VL IV PRN (13:00)
[2023-01-17] MEDS: MEROPENEM 1 GM in SODIUM CHL 0.9% 100 ML IV SCH (15:01)
[2023-01-17 20:00] VITALS: BP 105/53
[2023-01-17 22:00] VITALS: BP 105/53
[2023-01-17] MEDS: ATORVASTATIN 20 MG TAB PO SCH (22:13)
[2023-01-17] MEDS: HYDROcodone-ACET 5/325MG TAB PO PRN (22:15)
[2023-01-18] MEDS: HYDROcodone-ACET 5/325MG TAB PO PRN (03:20)
[2023-01-18 05:00] VITALS: BP 127/59
[2023-01-18 05:37] LABS: Hematocrit 28.7 % (36.0-46.0); Hemoglobin 9.2 g/dL (12.2-16.2)
[2023-01-18] MEDS: LEVOTHYROXINE SODIUM 25 MCG TAB PO SCH (06:21)
[2023-01-18] MEDS: HEPARIN SODIUM (PORCINE) 5000 UNITS/ML 1ML VIAL SC SCH ×3 (06:23→22:07)
[2023-01-18] MEDS ORDERED: SODIUM CHL 0.9% 1000 ML BAG XX ONE (07:00)
[2023-01-18] MEDS: FERROUS SULFATE 325mg EC TAB PO SCH ×2 (08:00→17:14)
[2023-01-18] MEDS: NIFEdipine ER 30 MG TAB PO SCH (09:15)
[2023-01-18] MEDS: LOSARTAN POTASSIUM 50 MG TAB PO SCH (09:15)
[2023-01-18] MEDS: CILOSTAZOL 100 MG TAB PO SCH (09:15)
[2023-01-18] MEDS: METOPROLOL SUCCINATE XL 50 MG TAB PO SCH ×2 (09:15→21:53)
[2023-01-18] MEDS: MORPHINE SULFATE 4 MG/ML SYR/VIAL IV PRN ×3 (09:55→21:53)
[2023-01-18 12:30] VITALS: BP 120/71
[2023-01-18] MEDS: CLOPIDOGREL BISULFATE 75 MG TAB PO SCH (15:08)
[2023-01-18] MEDS: ASPirin 81 mg TAB PO SCH (15:08)
[2023-01-18] MEDS: MEROPENEM 1 GM in SODIUM CHL 0.9% 100 ML IV SCH (15:09)
[2023-01-18] MEDS ORDERED: VANCOMYCIN 500 MG in D5W 5% 100 ML IV ONE (16:00)
[2023-01-18 17:02] VITALS: BP 134/77
[2023-01-18 20:00] VITALS: BP 140/67
[2023-01-18] MEDS ORDERED: EPOETIN ALFA-EPBX 4,000 UNIT/ML VIAL SC ONE (21:00)
[2023-01-18] MEDS: ATORVASTATIN 20 MG TAB PO SCH (21:52)
[2023-01-18 22:00] VITALS: BP 140/67
[2023-01-19] MEDS: MORPHINE SULFATE 4 MG/ML SYR/VIAL IV PRN ×3 (02:08→15:57)
[2023-01-19 05:00] VITALS: BP 161/70
[2023-01-19 05:30] LABS: Calcium 9.5 mg/dL (8.5-10.1); Potassium 3.7 mmol/L (3.5-5.1)
[2023-01-19 05:33] LABS: BUN/Creatinine Ratio 5.6 (10.0-20.0); Bilirubin, Total 0.4 mg/dL (0.2-1.0); Total Protein 7.6 g/dL (6.4-8.2)
[2023-01-19] MEDS: LEVOTHYROXINE SODIUM 25 MCG TAB PO SCH (06:11)
[2023-01-19] MEDS: hydrALAZINE HCL 20 MG/ML VL IV PRN (06:13)
[2023-01-19] MEDS: HEPARIN SODIUM (PORCINE) 5000 UNITS/ML 1ML VIAL SC SCH ×2 (06:23→14:25)
[2023-01-19 08:00] VITALS: BP 140/63
[2023-01-19] MEDS: HYDROcodone-ACET 5/325MG TAB PO PRN ×2 (08:51→18:55)
[2023-01-19 09:00] VITALS: BP 140/63
[2023-01-19] MEDS: FERROUS SULFATE 325mg EC TAB PO SCH ×2 (09:34→18:55)
[2023-01-19] MEDS: ASPirin 81 mg TAB PO SCH (09:34)
[2023-01-19] MEDS: NIFEdipine ER 30 MG TAB PO SCH (10:41)
[2023-01-19] MEDS: CILOSTAZOL 100 MG TAB PO SCH (10:42)
[2023-01-19] MEDS: METOPROLOL SUCCINATE XL 50 MG TAB PO SCH (10:43)
[2023-01-19] MEDS: CLOPIDOGREL BISULFATE 75 MG TAB PO SCH (10:43)
[2023-01-19] MEDS: LOSARTAN POTASSIUM 50 MG TAB PO SCH (10:44)
[2023-01-19 13:00] VITALS: BP 141/56
[2023-01-19] MEDS ORDERED: CLON0.1D TD (15:13)
[2023-01-19] MEDS: MEROPENEM 1 GM in SODIUM CHL 0.9% 100 ML IV SCH (15:58)
[2023-01-19 17:04] VITALS: BP 143/73
[2023-01-19] MEDS: cloNIDine 0.1 mg/24hr 7 DAY PATCH TD SCH (18:59)
== END 2023-01-19 18:30 | disposition home health service (06) | DRG 70 ==
LOC: ER 11:19 → TELE 15:37 → TELE-CENTR 01-12 22:00
PROVIDERS: ADMIT Nurse Practitioner Family; ATTEND Nurse Practitioner
PROC: 5A1D70Z Performance of Urinary Filtration, Intermittent, Less than 6 Hours Per Day (ICD-10-PCS; 2023-01-13)
PROC: 4A00X4Z Measurement of Central Nervous Electrical Activity, External Approach (ICD-10-PCS; principal; 2023-01-16)
PROC: 05HA33Z Insertion of Infusion Device into Left Brachial Vein, Percutaneous Approach (ICD-10-PCS; 2023-01-16)
PROC: B54NZZA Ultrasonography of Left Upper Extremity Veins, Guidance (ICD-10-PCS; 2023-01-16)
PROC: 5A1D70Z Performance of Urinary Filtration, Intermittent, Less than 6 Hours Per Day (ICD-10-PCS; 2023-01-16)
PROC: 5A1D70Z Performance of Urinary Filtration, Intermittent, Less than 6 Hours Per Day (ICD-10-PCS; 2023-01-18)
DX: G93.41 Metabolic encephalopathy (principal); E43 Unspecified severe protein-calorie malnutrition; N18.6 End stage renal disease; J18.9 Pneumonia, unspecified organism; R53.2 Functional quadriplegia; T87.43 Infection of amputation stump, right lower extremity; I16.1 Hypertensive emergency; E87.1 Hypo-osmolality and hyponatremia; I13.2 Hypertensive heart and chronic kidney disease with heart failure and with stage 5 chronic kidney disease, or end stage renal disease; D63.1 Anemia in chronic kidney disease; E21.2 Other hyperparathyroidism; F41.9 Anxiety disorder, unspecified; F32.A Depression, unspecified; I25.10 Atherosclerotic heart disease of native coronary artery without angina pectoris; E11.51 Type 2 diabetes mellitus with diabetic peripheral angiopathy without gangrene; E78.5 Hyperlipidemia, unspecified; Y83.8 Other surgical procedures as the cause of abnormal reaction of the patient, or of later complication, without mention of misadventure at the time of the procedure; E11.649 Type 2 diabetes mellitus with hypoglycemia without coma; F29 Unspecified psychosis not due to a substance or known physiological condition; K59.00 Constipation, unspecified; D72.829 Elevated white blood cell count, unspecified; E11.22 Type 2 diabetes mellitus with diabetic chronic kidney disease; I50.9 Heart failure, unspecified; F17.200 Nicotine dependence, unspecified, uncomplicated; Z89.611 Acquired absence of right leg above knee; Z89.612 Acquired absence of left leg above knee; Z95.5 Presence of coronary angioplasty implant and graft; Z99.2 Dependence on renal dialysis; Z79.899 Other long term (current) drug therapy; Z79.02 Long term (current) use of antithrombotics/antiplatelets; Z68.21 Body mass index [BMI] 21.0-21.9, adult; Z82.49 Family history of ischemic heart disease and other diseases of the circulatory system; Z83.3 Family history of diabetes mellitus; I25.2 Old myocardial infarction
CPT/HCPCS: 36415; 70450; 70551; 71045; 78582; 80048; 80053; 80202; 80320; 80329; 82962; 83036; 83605; 83615; 83735; 84443; 84484; 84702; 85014; 85018; 85025; 85379; 85610; 85730; 87040; 87077; 87081; 87186; 87205; 90935; 93005; 96379; C9113; G0378; J1642; J2405; J2543; J3490; J7060

== ENCOUNTER 2023-02-13 10:38 | Inpatient (IN) | payer MEDICARE, MEDICAID ==
[~2023-02-13] VITALS: Ht 121.9 cm; Wt 54.3 kg
[~2023-02-13 10:38] MED LIST changes: +CLON0.1D13 TD; +DOCU-265 PO; -DOCU100C10 PO; -FERR-20 PO; +FERR325T24 PO; -LISI40TA11 PO; +LISI40TA16 PO; -LOSA-69 PO; +LOSA50TA46 PO; -NIFE90TA49 PO; +NIFE90TA75 PO
[2023-02-13] MEDS ORDERED: MORPHINE SULFATE 4 MG/ML SYR/VIAL IV ONE (11:30)
[2023-02-13] MEDS ORDERED: hydrALAZINE HCL 20 MG/ML VL IV ONE (11:30)
[2023-02-13] MEDS ORDERED: ONDANSETRON HCL 4 MG/2 ML VIAL IV ONE (11:30)
[2023-02-13 11:35] LABS: Basophils # (auto) 0.1 10 ^3/uL (0-0.2); Eosinophils # (auto) 0.3 10 ^3/uL (0-0.8); Lymphocytes # (auto) 0.7 10 ^3/uL (0.4-5.4); Monocytes # (auto) 0.5 10 ^3/uL (0-1.3); Nucleated Red Blood Cells % 0.1 %
[2023-02-13 11:37] LABS: Basophils % (auto) 1.7 % (0.0-2.0); Eosinophils % (auto) 3.4 % (0.0-7.0); Hematocrit 31.4 % (36.0-46.0); Hemoglobin 10.2 g/dL (12.2-16.2); Lymphocytes % (auto) 8.5 % (10.0-50.0); Mean Corpuscular Hgb Conc. 32.6 g/dL (32.0-36.0); Mean Corpuscular Volume 92.1 fL (80.0-100.0); Monocytes % (auto) 5.7 % (0.0-12.0); Neutrophils # (auto) 6.5 10 ^3/uL (1.6-8.6); Neutrophils % (auto) 80.7 % (37.0-80.0); Red Blood Cells 3.41 10^6/uL (4.0-5.20); Red Cell Distribution Width 15.5 % (11.8-14.3)
[2023-02-13 11:47] LABS: Calcium 9.6 mg/dL (8.5-10.1); Potassium 4.1 mmol/L (3.5-5.1)
[2023-02-13 11:50] LABS: BUN/Creatinine Ratio 12.2 (10.0-20.0); Bilirubin, Total 0.4 mg/dL (0.2-1.0)
[2023-02-13] MEDS ORDERED: FUROSEMIDE 100 MG/10ML VIAL IV ONE (13:15)
[2023-02-13] MEDS ORDERED: MORPHINE SULFATE INJ 2 MG/ml SYRG IV PRN (16:00)
[2023-02-13] MEDS ORDERED: NITROGLYCERIN 0.4 MG SL TAB SL PRN (16:00)
[2023-02-13] MEDS ORDERED: ONDANSETRON HCL 4 MG/2 ML VIAL IV PRN (16:00)
[2023-02-13] MEDS ORDERED: ACETAMINOPHEN 325 MG TAB PO PRN (16:00)
[2023-02-13] MEDS ORDERED: DOCUSATE SOD 100 MG CAP PO PRN (16:00)
[2023-02-13] MEDS ORDERED: cloNIDine 0.1 mg/24hr 7 DAY PATCH TD SCH (16:15)
[2023-02-13] MEDS ORDERED: ASPirin 81 mg TAB PO ONE (17:45)
[2023-02-13] MEDS ORDERED: DOCUSATE SOD 100 MG CAP PO SCH (22:00)
[2023-02-13] MEDS: METOPROLOL SUCCINATE XL 50 MG TAB PO SCH (22:24)
[2023-02-14 00:47] VITALS: BP 136/65
[2023-02-14 06:15] LABS: Basophils # (auto) 0.2 10 ^3/uL (0-0.2); Eosinophils % (auto) 5.3 % (0.0-7.0); Hemoglobin 8.3 g/dL (12.2-16.2); Lymphocytes # (auto) 0.9 10 ^3/uL (0.4-5.4); Monocytes # (auto) 0.6 10 ^3/uL (0-1.3); Neutrophils # (auto) 4.5 10 ^3/uL (1.6-8.6); Red Blood Cells 2.78 10^6/uL (4.0-5.20)
[2023-02-14 06:18] LABS: Basophils % (auto) 2.4 % (0.0-2.0); Eosinophils # (auto) 0.4 10 ^3/uL (0-0.8); Hematocrit 25.7 % (36.0-46.0); Lymphocytes % (auto) 14.1 % (10.0-50.0); Mean Corpuscular Hgb Conc. 32.5 g/dL (32.0-36.0); Mean Corpuscular Volume 92.5 fL (80.0-100.0); Monocytes % (auto) 9.4 % (0.0-12.0); Neutrophils % (auto) 68.8 % (37.0-80.0); Nucleated Red Blood Cells % 0.2 %; Red Cell Distribution Width 15.2 % (11.8-14.3); White Blood Cell 6.6 10^3/uL (4.4-10.8)
[2023-02-14 06:36] LABS: Albumin 2.6 g/dL (3.4-5.0); Potassium 4.5 mmol/L (3.5-5.1)
[2023-02-14 06:39] LABS: BUN/Creatinine Ratio 12.4 (10.0-20.0); Bilirubin, Total 0.3 mg/dL (0.2-1.0); Total Protein 7.5 g/dL (6.4-8.2)
[2023-02-14] MEDS: LEVOTHYROXINE SODIUM 25 MCG TAB PO SCH (06:41)
[2023-02-14] MEDS: NIFEdipine ER 30 MG TAB PO SCH (08:32)
[2023-02-14] MEDS: LISINOPRIL 20 MG TAB PO SCH (08:33)
[2023-02-14] MEDS: ATORVASTATIN 20 MG TAB PO SCH (08:33)
[2023-02-14] MEDS: METOPROLOL SUCCINATE XL 50 MG TAB PO SCH ×2 (08:33→23:09)
[2023-02-14] MEDS: CLOPIDOGREL BISULFATE 75 MG TAB PO SCH (08:34)
[2023-02-14] MEDS: CILOSTAZOL 100 MG TAB PO SCH (09:05)
[2023-02-14] MEDS ORDERED: LORazepam 2MG/ML-1ML VIAL IV PRN (09:45)
[2023-02-14] MEDS ORDERED: LOSARTAN POTASSIUM 50 MG TAB PO SCH (10:00)
[2023-02-14] MEDS: hydrALAZINE HCL 20 MG/ML VL IV PRN (10:49)
[2023-02-14] MEDS: HYDROcodone-ACET 5/325MG TAB PO PRN ×2 (14:23→18:14)
[2023-02-14] MEDS ORDERED: SODIUM CHL 0.9% 1000 ML BAG XX ONE (14:30)
[2023-02-14 15:07] LABS: % Iron Saturation 19.1 % (15-50)
[2023-02-14] MEDS ORDERED: ALBUMIN 25% 100 ML IV ONE ×2 (15:15→16:00)
[2023-02-14] MEDS ORDERED: HEPARIN SODIUM (PORCINE) 5000 UNITS/ML 1ML VIAL IV ONE (15:45)
[2023-02-14] MEDS ORDERED: HEPARIN 1,000 UNITS/ml 1ML VIAL IV ONE ×2 (16:00→16:30)
[2023-02-14] MEDS ORDERED: CATHFLO ACTIVASE (ALTEPLASE) 2 MG VIAL IV ONE (16:30)
[2023-02-14] MEDS ORDERED: SODIUM CHLORIDE 0.9% 500 ML IV ONE (20:00)
[2023-02-14] MEDS ORDERED: EPOETIN ALFA-EPBX 10,000 UNIT/1ML VIAL SC ONE (21:00)
[2023-02-15 05:00] VITALS: BP 142/62
[2023-02-15 05:46] LABS: Cholesterol 160 mg/dL (< 200); HDL Cholesterol 38 mg/dL (40-59); LDL Cholesterol 101 mg/dL (< 100); Triglycerides 154 mg/dL (< 150)
[2023-02-15] MEDS: HYDROcodone-ACET 5/325MG TAB PO PRN ×2 (05:48→21:35)
[2023-02-15] MEDS: LEVOTHYROXINE SODIUM 25 MCG TAB PO SCH (06:28)
[2023-02-15 09:00] VITALS: BP 157/63
[2023-02-15] MEDS: LISINOPRIL 20 MG TAB PO SCH (09:21)
[2023-02-15] MEDS: ATORVASTATIN 20 MG TAB PO SCH (09:22)
[2023-02-15] MEDS: CLOPIDOGREL BISULFATE 75 MG TAB PO SCH (09:22)
[2023-02-15] MEDS: METOPROLOL SUCCINATE XL 50 MG TAB PO SCH ×2 (09:22→21:36)
[2023-02-15] MEDS: NIFEdipine ER 30 MG TAB PO SCH (09:24)
[2023-02-15] MEDS: CILOSTAZOL 100 MG TAB PO SCH (09:24)
[2023-02-15 13:00] VITALS: BP 158/74
[2023-02-15 17:00] VITALS: BP 142/64
[2023-02-15 22:00] VITALS: BP 137/58
[2023-02-16] VITALS (7 sets, daily range): BP systolic 129–166; BP diastolic 56–70
[2023-02-16] MEDS: HYDROcodone-ACET 5/325MG TAB PO PRN ×2 (04:09→17:46)
[2023-02-16 06:13] LABS: BUN/Creatinine Ratio 10.5 (10.0-20.0); Calcium 8.7 mg/dL (8.5-10.1)
[2023-02-16] MEDS: LEVOTHYROXINE SODIUM 25 MCG TAB PO SCH (06:24)
[2023-02-16] MEDS ORDERED: SODIUM CHL 0.9% 1000 ML BAG XX ONE (07:00)
[2023-02-16] MEDS: ATORVASTATIN 20 MG TAB PO SCH (09:56)
[2023-02-16] MEDS: METOPROLOL SUCCINATE XL 50 MG TAB PO SCH ×2 (09:56→23:02)
[2023-02-16] MEDS: NIFEdipine ER 30 MG TAB PO SCH (09:56)
[2023-02-16] MEDS: CILOSTAZOL 100 MG TAB PO SCH (09:56)
[2023-02-16] MEDS: CLOPIDOGREL BISULFATE 75 MG TAB PO SCH (09:56)
[2023-02-16] MEDS: LISINOPRIL 20 MG TAB PO SCH (09:57)
[2023-02-16] MEDS ORDERED: LOSA50TA46 PO (14:23)
[2023-02-16] MEDS ORDERED: METO-6 PO (14:23)
[2023-02-16] MEDS ORDERED: NIFE1TAB31 PO (14:23)
[2023-02-16] MEDS: hydrALAZINE HCL 20 MG/ML VL IV PRN (17:21)
[2023-02-16] MEDS ORDERED: EPOETIN ALFA-EPBX 10,000 UNIT/1ML VIAL SC ONE (21:00)
[2023-02-17] MEDS: HYDROcodone-ACET 5/325MG TAB PO PRN ×4 (00:56→17:39)
[2023-02-17 05:00] VITALS: BP 137/64
[2023-02-17] MEDS: LEVOTHYROXINE SODIUM 25 MCG TAB PO SCH (06:43)
[2023-02-17 09:00] VITALS: BP 151/60
[2023-02-17] MEDS ORDERED: HEPARIN SODIUM (PORCINE) 5000 UNITS/ML 1ML VIAL IV ONE (12:00)
[2023-02-17 13:00] VITALS: BP 150/82
[2023-02-17] MEDS: NIFEdipine ER 30 MG TAB PO SCH (14:01)
[2023-02-17] MEDS: LISINOPRIL 20 MG TAB PO SCH (14:02)
[2023-02-17] MEDS: CLOPIDOGREL BISULFATE 75 MG TAB PO SCH (14:02)
[2023-02-17] MEDS: METOPROLOL SUCCINATE XL 50 MG TAB PO SCH ×2 (14:02→21:22)
[2023-02-17] MEDS: ATORVASTATIN 20 MG TAB PO SCH (14:03)
[2023-02-17] MEDS: CILOSTAZOL 100 MG TAB PO SCH (14:03)
[2023-02-17 16:56] VITALS: BP 150/82
[2023-02-17 17:00] VITALS: BP 163/81
== END 2023-02-17 22:18 | disposition home health service (06) | DRG 70 ==
LOC: EDBD 10:38 → ER 10:38 → TELE 16:10 → TELE-EAST 02-14 23:43
PROVIDERS: ADMIT Nurse Practitioner; ATTEND Internal Medicine
PROC: 5A1D70Z Performance of Urinary Filtration, Intermittent, Less than 6 Hours Per Day (ICD-10-PCS; principal; 2023-02-14)
PROC: 5A1D70Z Performance of Urinary Filtration, Intermittent, Less than 6 Hours Per Day (ICD-10-PCS; 2023-02-17)
DX: I67.83 Posterior reversible encephalopathy syndrome (principal); E43 Unspecified severe protein-calorie malnutrition; N18.6 End stage renal disease; I50.33 Acute on chronic diastolic (congestive) heart failure; I13.2 Hypertensive heart and chronic kidney disease with heart failure and with stage 5 chronic kidney disease, or end stage renal disease; I16.1 Hypertensive emergency; E87.1 Hypo-osmolality and hyponatremia; E87.20 Acidosis, unspecified; N25.81 Secondary hyperparathyroidism of renal origin; Z99.2 Dependence on renal dialysis; D63.1 Anemia in chronic kidney disease; E03.9 Hypothyroidism, unspecified; E11.22 Type 2 diabetes mellitus with diabetic chronic kidney disease; E11.51 Type 2 diabetes mellitus with diabetic peripheral angiopathy without gangrene; E11.622 Type 2 diabetes mellitus with other skin ulcer; G89.29 Other chronic pain; E78.5 Hyperlipidemia, unspecified; H54.3 Unqualified visual loss, both eyes; E83.59 Other disorders of calcium metabolism; F32.A Depression, unspecified; F41.9 Anxiety disorder, unspecified; I25.10 Atherosclerotic heart disease of native coronary artery without angina pectoris; L89.90 Pressure ulcer of unspecified site, unspecified stage; L98.499 Non-pressure chronic ulcer of skin of other sites with unspecified severity; Z79.82 Long term (current) use of aspirin; Z79.899 Other long term (current) drug therapy; Z82.49 Family history of ischemic heart disease and other diseases of the circulatory system; I25.2 Old myocardial infarction; Z83.3 Family history of diabetes mellitus; Z86.73 Personal history of transient ischemic attack (TIA), and cerebral infarction without residual deficits; Z89.512 Acquired absence of left leg below knee; Z89.611 Acquired absence of right leg above knee; Z89.612 Acquired absence of left leg above knee; Z95.5 Presence of coronary angioplasty implant and graft; Z74.01 Bed confinement status
CPT/HCPCS: 36415; 70450; 70551; 71045; 80048; 80053; 80061; 82728; 83540; 83550; 83880; 84443; 84484; 85025; 87081; 90935; 93005; 93306; 99291; G0378; J2405; P9047

== ENCOUNTER 2023-06-05 12:48 | Inpatient (IN) | payer MEDICARE, MEDICAID ==
[~2023-06-05] VITALS: Ht 137.2 cm; Wt 59.0 kg
[~2023-06-05 12:48] MED LIST changes: -LISI40TA16 PO; -METO-289 PO; +METO-6 PO; +NIFE1TAB31 PO; -NIFE90TA75 PO
[2023-06-05] MEDS ORDERED: SODIUM CHLORIDE 0.9% 500 ML IV ONE (13:45)
[2023-06-05] MEDS ORDERED: PIPERACILLIN-TAZOB 3.375GM 100 ML IV ONE (13:45)
[2023-06-05] MEDS ORDERED: AZITHROMYCIN 500MG/ 250ML 250 ML IV ONE (13:45)
[2023-06-05 13:54] VITALS: PULSE 106; RESP 17; O2SAT 100
[2023-06-05 14:10] LABS: Basophils # (auto) 0 10 ^3/uL (0-0.2); Basophils % (auto) 0.1 % (0.0-2.0); Eosinophils # (auto) 0 10 ^3/uL (0-0.8); Mean Corpuscular Volume 97.5 fL (80.0-100.0); Monocytes # (auto) 0.2 10 ^3/uL (0-1.3); White Blood Cell 16.2 10^3/uL (4.4-10.8)
[2023-06-05 14:12] LABS: Eosinophils % (auto) 0.2 % (0.0-7.0); Hematocrit 21.7 % (36.0-46.0); Lymphocytes # (auto) 0.3 10 ^3/uL (0.4-5.4); Lymphocytes % (auto) 1.7 % (10.0-50.0); Mean Corpuscular Hemoglobin 31.5 pg (28.0-32.0); Mean Corpuscular Hgb Conc. 32.3 g/dL (32.0-36.0); Monocytes % (auto) 1.4 % (0.0-12.0); Neutrophils # (auto) 15.6 10 ^3/uL (1.6-8.6); Neutrophils % (auto) 96.6 % (37.0-80.0); Red Blood Cells 2.23 10^6/uL (4.0-5.20); Red Cell Distribution Width 13.6 % (11.8-14.3)
[2023-06-05 14:23] LABS: Alanine Aminotransferase 46 U/L (7-40); Albumin 3.9 g/dL (3.2-4.8); Alkaline Phosphatase 160 U/L (46-116); Anion Gap 12 (5-15); Aspartate Aminotransferase 14 U/L (13-40); BUN/Creatinine Ratio 24.5 (10.0-20.0); Calcium 8.9 mg/dL (8.7-10.4); Carbon Dioxide 27 mmol/L (20-30); Chloride 99 mmol/L (98-107); Glucose 117 mg/dL (74-106); Lactic Acid w/Reflex 2.5 mmol/L (0.4-2.0); Potassium 4.8 mmol/L (3.5-5.1); Sodium 138 mmol/L (136-145)
[2023-06-05 14:24] LABS: Bilirubin, Total < 0.2 mg/dL (0.2-1.0); Total Protein 7.3 g/dL (5.7-8.2)
[2023-06-05 14:36] LABS: Blood Urea Nitrogen 143 mg/dL (9-23)
[2023-06-05 14:49] LABS: Base Excess -0.9 mmol/L (-2.0-2.0)
[2023-06-05] MEDS ORDERED: ACETAMINOPHEN 500 MG TAB PO ONE (15:30)
[2023-06-05] MEDS ORDERED: MORPHINE SULFATE INJ 2 MG/ml SYRG IV PRN (16:45)
[2023-06-05] MEDS ORDERED: VANCOMYCIN PER PHARMACY 0 MG IV SCH (16:45)
[2023-06-05] MEDS ORDERED: NITROGLYCERIN 0.4 MG SL TAB SL PRN (16:45)
[2023-06-05] MEDS ORDERED: DEXTROSE (50%) 50ML SYRG IV PRN (16:45)
[2023-06-05] MEDS ORDERED: CEFEPIME 1GM/ 50ML 50 ML IV ONE (16:45)
[2023-06-05] MEDS ORDERED: VANCOMYCIN 1GM/250ML 250 ML IV ONE (18:00)
[2023-06-05] MEDS: ACCU-CHEK COMFORT CURVE STRIP VI SCH ×2 (18:00→23:00)
[2023-06-05] MEDS: InsuLIN REG 1unit/0.01ml Soln (100units/ml) SC SCH ×2 (18:00→22:00)
[2023-06-05] MEDS: cloNIDine 0.1 mg/24hr 7 DAY PATCH TD SCH (18:02)
[2023-06-05] MEDS: FERROUS SULFATE 325mg EC TAB PO SCH (18:10)
[2023-06-05 20:14] VITALS: PULSE 86; RESP 19; O2SAT 100
[2023-06-05 22:00] VITALS: BP 117/75; PULSE 88; RESP 18; TEMP 99.9; O2SAT 100
[2023-06-05] MEDS: ASCORBIC ACID 500 MG TAB PO SCH (22:47)
[2023-06-05] MEDS: DOCUSATE SOD 100 MG CAP PO SCH (22:48)
[2023-06-05] MEDS: METOPROLOL SUCCINATE XL 50 MG TAB PO SCH (22:48)
[2023-06-06] VITALS (14 sets, daily range): BP systolic 107–137; BP diastolic 42–82; PULSE 56–75; RESP 16–19; TEMP 97.5–98.7; O2SAT 92–100
[2023-06-06] MEDS: ACCU-CHEK COMFORT CURVE STRIP VI SCH ×4 (06:52→22:01)
[2023-06-06] MEDS: InsuLIN REG 1unit/0.01ml Soln (100units/ml) SC SCH ×4 (06:52→22:00)
[2023-06-06] MEDS ORDERED: SODIUM CHL 0.9% 1000 ML BAG XX ONE (07:00)
[2023-06-06] MEDS: FERROUS SULFATE 325mg EC TAB PO SCH ×2 (08:00→18:28)
[2023-06-06] MEDS: ACETAMINOPHEN 325 MG TAB PO PRN (08:39)
[2023-06-06 09:34] LABS: Eosinophils # (auto) 0 10 ^3/uL (0-0.8); Eosinophils % (auto) 0.1 % (0.0-7.0); Monocytes # (auto) 0.7 10 ^3/uL (0-1.3); Monocytes % (auto) 3.3 % (0.0-12.0)
[2023-06-06 09:36] LABS: Basophils # (auto) 0.1 10 ^3/uL (0-0.2); Basophils % (auto) 0.3 % (0.0-2.0); Hematocrit 20.5 % (36.0-46.0); Lymphocytes # (auto) 0.7 10 ^3/uL (0.4-5.4); Lymphocytes % (auto) 3.5 % (10.0-50.0); Mean Corpuscular Hemoglobin 31.7 pg (28.0-32.0); Mean Corpuscular Hgb Conc. 32.3 g/dL (32.0-36.0); Mean Corpuscular Volume 98.2 fL (80.0-100.0); Neutrophils # (auto) 19.5 10 ^3/uL (1.6-8.6); Neutrophils % (auto) 92.8 % (37.0-80.0); Red Blood Cells 2.08 10^6/uL (4.0-5.20); Red Cell Distribution Width 13.4 % (11.8-14.3)
[2023-06-06 09:39] LABS: Hemoglobin 6.6 g/dL (12.2-16.2)
[2023-06-06 09:47] LABS: % Iron Saturation 7.4 % (15-50); Alanine Aminotransferase 44 U/L (7-40); Albumin 3.7 g/dL (3.2-4.8); Alkaline Phosphatase 108 U/L (46-116); Anion Gap 12 (5-15); Aspartate Aminotransferase 26 U/L (13-40); BUN/Creatinine Ratio 20.6 (10.0-20.0); Bilirubin, Total < 0.2 mg/dL (0.2-1.0); Calcium 8.7 mg/dL (8.5-10.1); Carbon Dioxide 24 mmol/L (20-30); Chloride 98 mmol/L (98-107); Glucose 95 mg/dL (74-106); Potassium 5.2 mmol/L (3.5-5.1); Sodium 134 mmol/L (136-145); Total Protein 7.2 g/dL (5.7-8.2)
[2023-06-06 09:56] LABS: Blood Urea Nitrogen 119 mg/dL (9-23)
[2023-06-06] MEDS: LOSARTAN POTASSIUM 50 MG TAB PO SCH (10:00)
[2023-06-06] MEDS: CLOPIDOGREL BISULFATE 75 MG TAB PO SCH (10:00)
[2023-06-06] MEDS ORDERED: CEFEPIME 1GM/ 50ML 50 ML IV SCH (10:00)
[2023-06-06] MEDS: ASPirin-EC 81 mg tab PO SCH (10:00)
[2023-06-06] MEDS: MULTIPLE VITAMIN TAB PO SCH (10:00)
[2023-06-06] MEDS: LEVOTHYROXINE SODIUM 50 MCG TAB PO SCH (10:00)
[2023-06-06] MEDS: CILOSTAZOL 100 MG TAB PO SCH (10:00)
[2023-06-06] MEDS: DOCUSATE SOD 100 MG CAP PO SCH ×2 (10:00→21:52)
[2023-06-06] MEDS: CALCITRIOL 0.25 MCG CAP PO SCH (10:00)
[2023-06-06] MEDS: ATORVASTATIN 20 MG TAB PO SCH (10:00)
[2023-06-06] MEDS: ASCORBIC ACID 500 MG TAB PO SCH ×2 (10:00→21:52)
[2023-06-06] MEDS: NIFEdipine ER 30 MG TAB PO SCH (10:00)
[2023-06-06] MEDS: METOPROLOL SUCCINATE XL 50 MG TAB PO SCH ×2 (10:00→21:52)
[2023-06-06] MEDS ORDERED: IPRATROPIUM BROM 0.5 MG/2.5ML INH SOL NEB PRN (11:30)
[2023-06-06] MEDS ORDERED: ASPI-543 PO (16:12)
[2023-06-06] MEDS ORDERED: HYDR-4297 PO (16:12)
[2023-06-06] MEDS ORDERED: LOSA50TA46 PO (16:12)
[2023-06-06] MEDS ORDERED: LEVO75TA6 PO (16:12)
[2023-06-06] MEDS ORDERED: CLON0.1D13 TD (16:12)
[2023-06-06] MEDS ORDERED: NIFE1TAB36 PO (16:12)
[2023-06-06] MEDS ORDERED: METO-6 PO (16:12)
[2023-06-06] MEDS: HYDROcodone-ACET 5/325MG TAB PO PRN (18:28)
[2023-06-06] MEDS ORDERED: VANCOMYCIN 1GM/250ML 250 ML IV ONE (20:00)
[2023-06-06] MEDS ORDERED: EPOETIN ALFA-EPBX 10,000 UNIT/1ML VIAL SC ONE (21:00)
[2023-06-06] MEDS: methylPREDNISolone SOD SUCC 40 MG/ML VL IV SCH (21:52)
[2023-06-07] VITALS (8 sets, daily range): BP systolic 139–157; BP diastolic 61–84; PULSE 60–81; RESP 18–20; TEMP 97.9–99; O2SAT 97–100
[2023-06-07] MEDS: ONDANSETRON HCL 4 MG/2 ML VIAL IV PRN (00:06)
[2023-06-07] MEDS: HYDROcodone-ACET 5/325MG TAB PO PRN ×2 (04:15→23:38)
[2023-06-07] MEDS: ACCU-CHEK COMFORT CURVE STRIP VI SCH ×4 (06:04→22:13)
[2023-06-07] MEDS: InsuLIN REG 1unit/0.01ml Soln (100units/ml) SC SCH ×4 (06:04→22:00)
[2023-06-07] MEDS ORDERED: SODIUM CHL 0.9% 1000 ML BAG XX ONE (07:00)
[2023-06-07 07:03] LABS: Hematocrit 26.7 % (36.0-46.0); Hemoglobin 8.6 g/dL (12.2-16.2); Mean Corpuscular Hgb Conc. 32.2 g/dL (32.0-36.0); Mean Corpuscular Volume 96.1 fL (80.0-100.0); Red Blood Cells 2.78 10^6/uL (4.0-5.20); Red Cell Distribution Width 15.1 % (11.8-14.3); White Blood Cell 17.4 10^3/uL (4.4-10.8)
[2023-06-07 07:04] LABS: Band Neutrophils % (manual) 0; Basophils % (manual) 0 (0.0-2.0); Blast Cells 0; Eosinophils % (manual) 0 (0-7); Metamyelocytes % 0; Myelocytes % 0; Promyelocytes % 0; Reactive Lymphocytes 0
[2023-06-07 07:09] LABS: Alanine Aminotransferase 43 U/L (7-40); Albumin 3.6 g/dL (3.2-4.8); Alkaline Phosphatase 135 U/L (46-116); Anion Gap 10 (5-15); Aspartate Aminotransferase 15 U/L (13-40); BUN/Creatinine Ratio 20.1 (10.0-20.0); Calcium 8.6 mg/dL (8.7-10.4); Carbon Dioxide 24 mmol/L (20-30); Chloride 99 mmol/L (98-107); Glucose 110 mg/dL (74-106); Potassium 5.4 mmol/L (3.5-5.1); Sodium 133 mmol/L (136-145)
[2023-06-07 07:10] LABS: Bilirubin, Total < 0.2 mg/dL (0.2-1.0)
[2023-06-07 07:11] LABS: Blood Urea Nitrogen 73 mg/dL (9-23)
[2023-06-07] MEDS: FERROUS SULFATE 325mg EC TAB PO SCH ×2 (08:00→17:20)
[2023-06-07 08:48] LABS: Lymphocytes % (manual) 2 (10.0-50.0); Monocytes % (manual) 2 (0-12); Platelet Estimate Adequate
[2023-06-07] MEDS: methylPREDNISolone SOD SUCC 40 MG/ML VL IV SCH ×2 (10:00→21:35)
[2023-06-07] MEDS: METOPROLOL SUCCINATE XL 50 MG TAB PO SCH ×2 (10:00→21:38)
[2023-06-07] MEDS: LEVOTHYROXINE SODIUM 50 MCG TAB PO SCH (10:00)
[2023-06-07] MEDS: CALCITRIOL 0.25 MCG CAP PO SCH (10:00)
[2023-06-07] MEDS: MULTIPLE VITAMIN TAB PO SCH (10:00)
[2023-06-07] MEDS: CILOSTAZOL 100 MG TAB PO SCH (10:00)
[2023-06-07] MEDS: DOCUSATE SOD 100 MG CAP PO SCH ×2 (10:00→21:39)
[2023-06-07] MEDS: ATORVASTATIN 20 MG TAB PO SCH (10:00)
[2023-06-07] MEDS: NIFEdipine ER 30 MG TAB PO SCH (10:00)
[2023-06-07] MEDS: LOSARTAN POTASSIUM 50 MG TAB PO SCH (10:00)
[2023-06-07] MEDS: ASCORBIC ACID 500 MG TAB PO SCH ×2 (10:00→21:39)
[2023-06-07] MEDS: ASPirin-EC 81 mg tab PO SCH (10:00)
[2023-06-07] MEDS: CLOPIDOGREL BISULFATE 75 MG TAB PO SCH (10:00)
[2023-06-07] MEDS ORDERED: CLON0.2D13 TD (10:32)
[2023-06-07] MEDS ORDERED: LEVO50TA7 PO (10:32)
[2023-06-07] MEDS: MEROPENEM 1GM IVPB 100 ML IV SCH (21:35)
[2023-06-08] VITALS (8 sets, daily range): BP systolic 106–163; BP diastolic 35–90; PULSE 57–67; RESP 16–18; TEMP 97.1–98.7; O2SAT 94–100
[2023-06-08] MEDS: InsuLIN REG 1unit/0.01ml Soln (100units/ml) SC SCH ×4 (06:25→22:08)
[2023-06-08] MEDS: ACCU-CHEK COMFORT CURVE STRIP VI SCH ×4 (06:28→22:06)
[2023-06-08] MEDS: MEROPENEM 1GM IVPB 100 ML IV SCH ×2 (08:56→21:43)
[2023-06-08] MEDS: FERROUS SULFATE 325mg EC TAB PO SCH (08:56)
[2023-06-08] MEDS: methylPREDNISolone SOD SUCC 40 MG/ML VL IV SCH ×2 (08:57→21:42)
[2023-06-08] MEDS: DOCUSATE SOD 100 MG CAP PO SCH ×2 (08:57→21:43)
[2023-06-08] MEDS: CILOSTAZOL 100 MG TAB PO SCH (08:58)
[2023-06-08] MEDS: LEVOTHYROXINE SODIUM 50 MCG TAB PO SCH (08:58)
[2023-06-08] MEDS: CALCITRIOL 0.25 MCG CAP PO SCH (08:58)
[2023-06-08] MEDS: ASPirin-EC 81 mg tab PO SCH (08:58)
[2023-06-08] MEDS: ATORVASTATIN 20 MG TAB PO SCH (08:59)
[2023-06-08] MEDS: METOPROLOL SUCCINATE XL 50 MG TAB PO SCH ×2 (08:59→22:00)
[2023-06-08] MEDS: CLOPIDOGREL BISULFATE 75 MG TAB PO SCH (09:00)
[2023-06-08] MEDS: MULTIPLE VITAMIN TAB PO SCH (09:00)
[2023-06-08] MEDS: LOSARTAN POTASSIUM 50 MG TAB PO SCH (09:00)
[2023-06-08] MEDS: ASCORBIC ACID 500 MG TAB PO SCH ×2 (09:01→21:43)
[2023-06-08] MEDS: NIFEdipine ER 30 MG TAB PO SCH (09:01)
[2023-06-08] MEDS: HYDROcodone-ACET 5/325MG TAB PO PRN ×2 (15:27→21:46)
[2023-06-08] MEDS ORDERED: AURYXIA 210 MG PO SCH (18:00)
[2023-06-09] VITALS (9 sets, daily range): BP systolic 103–133; BP diastolic 52–69; PULSE 56–70; RESP 15–20; TEMP 97.6–98.3; O2SAT 97–100
[2023-06-09] MEDS: ACCU-CHEK COMFORT CURVE STRIP VI SCH ×4 (05:37→21:28)
[2023-06-09 05:52] LABS: Chloride 94 mmol/L (98-107); Sodium 131 mmol/L (136-145)
[2023-06-09 05:53] LABS: Anion Gap 13 (5-15); Calcium 9.1 mg/dL (8.7-10.4); Carbon Dioxide 24 mmol/L (20-30)
[2023-06-09 05:58] LABS: BUN/Creatinine Ratio 22.3 (10.0-20.0); Glucose 246 mg/dL (74-106)
[2023-06-09 06:13] LABS: INR 0.95 (0.9-1.15); Partial Thromboplastin Time 26.3 SEC (24.5-34.5)
[2023-06-09] MEDS: InsuLIN REG 1unit/0.01ml Soln (100units/ml) SC SCH ×4 (06:15→21:55)
[2023-06-09] MEDS: HYDROcodone-ACET 5/325MG TAB PO PRN ×3 (06:53→21:23)
[2023-06-09] MEDS ORDERED: SODIUM CHL 0.9% 1000 ML BAG XX ONE (07:00)
[2023-06-09 07:12] LABS: Blood Urea Nitrogen 98 mg/dL (9-23); Potassium 5.6 mmol/L (3.5-5.1)
[2023-06-09] MEDS: AURYXIA 210 MG PO SCH ×4 (08:00→18:34)
[2023-06-09] MEDS: NIFEdipine ER 30 MG TAB PO SCH (10:00)
[2023-06-09] MEDS: METOPROLOL SUCCINATE XL 50 MG TAB PO SCH ×2 (10:00→21:26)
[2023-06-09] MEDS: CLOPIDOGREL BISULFATE 75 MG TAB PO SCH (10:00)
[2023-06-09] MEDS: LOSARTAN POTASSIUM 50 MG TAB PO SCH (10:00)
[2023-06-09] MEDS: MULTIPLE VITAMIN TAB PO SCH (10:00)
[2023-06-09] MEDS: ASCORBIC ACID 500 MG TAB PO SCH ×2 (10:00→21:25)
[2023-06-09] MEDS: ATORVASTATIN 20 MG TAB PO SCH (10:00)
[2023-06-09] MEDS: ASPirin-EC 81 mg tab PO SCH (10:00)
[2023-06-09] MEDS: CALCITRIOL 0.25 MCG CAP PO SCH (10:00)
[2023-06-09] MEDS: CILOSTAZOL 100 MG TAB PO SCH (10:00)
[2023-06-09] MEDS: methylPREDNISolone SOD SUCC 40 MG/ML VL IV SCH ×2 (10:00→21:27)
[2023-06-09] MEDS: DOCUSATE SOD 100 MG CAP PO SCH ×2 (10:00→21:24)
[2023-06-09] MEDS: LEVOTHYROXINE SODIUM 50 MCG TAB PO SCH (10:00)
[2023-06-09] MEDS ORDERED: CATHFLO ACTIVASE (ALTEPLASE) 2 MG VIAL IV ONE (11:45)
[2023-06-09] MEDS ORDERED: MORPHINE SULFATE INJ 2 MG/ml SYRG IV PRN (13:30)
[2023-06-09] MEDS ORDERED: MIDAZOLAM HCL 5 MG/ML-1ML VIAL ONE (14:58)
[2023-06-09] MEDS ORDERED: LIDOCAINE VISCOUS 2% 15ML UD ONE (14:58)
[2023-06-09] MEDS ORDERED: diphenhdrAMINE HCL 50 MG/1 ML VL ONE (14:58)
[2023-06-09] MEDS ORDERED: fentaNYL CITRATE 100 MCG/2 ML VL ONE (14:59)
[2023-06-09] MEDS ORDERED: EPOETIN ALFA-EPBX 10,000 UNIT/1ML VIAL SC ONE (21:00)
[2023-06-10] VITALS (10 sets, daily range): BP systolic 108–173; BP diastolic 58–94; PULSE 56–66; RESP 16–18; TEMP 97.7–98.1; O2SAT 97–100
[2023-06-10] MEDS: HYDROcodone-ACET 5/325MG TAB PO PRN ×2 (04:50→16:29)
[2023-06-10 05:44] LABS: Basophils # (auto) 0 10 ^3/uL (0-0.2); Eosinophils # (auto) 0 10 ^3/uL (0-0.8); Hematocrit 33.3 % (36.0-46.0); Hemoglobin 10.8 g/dL (12.2-16.2); Lymphocytes # (auto) 0.4 10 ^3/uL (0.4-5.4); Lymphocytes % (auto) 6.6 % (10.0-50.0); Mean Corpuscular Hemoglobin 30.8 pg (28.0-32.0); Mean Corpuscular Hgb Conc. 32.4 g/dL (32.0-36.0); Mean Corpuscular Volume 95.2 fL (80.0-100.0); Monocytes # (auto) 0.3 10 ^3/uL (0-1.3); Monocytes % (auto) 4.4 % (0.0-12.0); Neutrophils # (auto) 5.7 10 ^3/uL (1.6-8.6); Nucleated Red Blood Cells % 0.1 %; Red Cell Distribution Width 13.5 % (11.8-14.3); White Blood Cell 6.4 10^3/uL (4.4-10.8)
[2023-06-10] MEDS: ACCU-CHEK COMFORT CURVE STRIP VI SCH ×4 (05:48→23:26)
[2023-06-10] MEDS: InsuLIN REG 1unit/0.01ml Soln (100units/ml) SC SCH ×4 (05:54→22:33)
[2023-06-10 06:15] LABS: Alanine Aminotransferase 22 U/L (7-40); Albumin 3.6 g/dL (3.2-4.8); Alkaline Phosphatase 129 U/L (46-116); Anion Gap 10 (5-15); Aspartate Aminotransferase < 8 U/L (13-40); Calcium 9.3 mg/dL (8.7-10.4); Carbon Dioxide 28 mmol/L (20-30); Chloride 96 mmol/L (98-107); Glucose 208 mg/dL (74-106); Potassium 5.1 mmol/L (3.5-5.1); Sodium 134 mmol/L (136-145)
[2023-06-10 06:16] LABS: Bilirubin, Total < 0.2 mg/dL (0.2-1.0); Total Protein 7.2 g/dL (5.7-8.2)
[2023-06-10 06:23] LABS: Blood Urea Nitrogen 60 mg/dL (9-23)
[2023-06-10] MEDS: methylPREDNISolone SOD SUCC 40 MG/ML VL IV SCH ×2 (11:07→22:26)
[2023-06-10] MEDS: PANTOPRAZOLE 40 MG/10 ML VIAL INJ IV SCH (11:07)
[2023-06-10] MEDS: MULTIPLE VITAMIN TAB PO SCH (11:07)
[2023-06-10] MEDS: DOCUSATE SOD 100 MG CAP PO SCH ×2 (11:08→22:27)
[2023-06-10] MEDS: ASCORBIC ACID 500 MG TAB PO SCH ×2 (11:08→22:26)
[2023-06-10] MEDS: CILOSTAZOL 100 MG TAB PO SCH (11:09)
[2023-06-10] MEDS: CLOPIDOGREL BISULFATE 75 MG TAB PO SCH (11:10)
[2023-06-10] MEDS: ATORVASTATIN 20 MG TAB PO SCH (11:10)
[2023-06-10] MEDS: ASPirin-EC 81 mg tab PO SCH (11:11)
[2023-06-10] MEDS: CALCITRIOL 0.25 MCG CAP PO SCH (11:11)
[2023-06-10] MEDS: LEVOTHYROXINE SODIUM 50 MCG TAB PO SCH (11:11)
[2023-06-10] MEDS: AURYXIA 210 MG PO SCH ×2 (11:18→17:37)
[2023-06-10] MEDS: METOPROLOL SUCCINATE XL 50 MG TAB PO SCH ×2 (11:28→22:00)
[2023-06-10] MEDS: NIFEdipine ER 30 MG TAB PO SCH (11:28)
[2023-06-10] MEDS: LOSARTAN POTASSIUM 50 MG TAB PO SCH (11:35)
[2023-06-10] MEDS: hydrALAZINE HCL 25 MG TAB PO SCH (22:27)
[2023-06-11] VITALS (13 sets, daily range): BP systolic 133–156; BP diastolic 54–77; PULSE 55–63; RESP 15–18; TEMP 97.3–97.8; O2SAT 98–100
[2023-06-11] MEDS: HYDROcodone-ACET 5/325MG TAB PO PRN ×4 (00:26→22:16)
[2023-06-11] MEDS: LEVOTHYROXINE SODIUM 50 MCG TAB PO SCH (06:14)
[2023-06-11] MEDS: ACCU-CHEK COMFORT CURVE STRIP VI SCH ×4 (06:15→22:16)
[2023-06-11] MEDS: InsuLIN REG 1unit/0.01ml Soln (100units/ml) SC SCH ×4 (06:18→22:26)
[2023-06-11 06:46] LABS: Alanine Aminotransferase 14 U/L (7-40); Albumin 3.7 g/dL (3.2-4.8); Alkaline Phosphatase 119 U/L (46-116); Anion Gap 10 (5-15); Aspartate Aminotransferase < 8 U/L (13-40); Bilirubin, Total < 0.2 mg/dL (0.2-1.0); Blood Urea Nitrogen 66 mg/dL (9-23); Calcium 9.1 mg/dL (8.7-10.4); Carbon Dioxide 25 mmol/L (20-30); Chloride 94 mmol/L (98-107); Glucose 268 mg/dL (74-106); Potassium 5.1 mmol/L (3.5-5.1); Total Protein 7.4 g/dL (5.7-8.2)
[2023-06-11 07:07] LABS: Sodium 129 mmol/L (136-145)
[2023-06-11 07:38] LABS: Hemoglobin 11.4 g/dL (12.2-16.2); Mean Corpuscular Hemoglobin 30.8 pg (28.0-32.0); Mean Corpuscular Hgb Conc. 32.5 g/dL (32.0-36.0); Mean Corpuscular Volume 94.9 fL (80.0-100.0); Red Blood Cells 3.69 10^6/uL (4.0-5.20); Red Cell Distribution Width 13.5 % (11.8-14.3); White Blood Cell 5.5 10^3/uL (4.4-10.8)
[2023-06-11 07:40] LABS: Band Neutrophils % (manual) 0; Basophils % (manual) 0 (0.0-2.0); Blast Cells 0; Eosinophils % (manual) 0 (0-7); Metamyelocytes % 0; Promyelocytes % 0; Reactive Lymphocytes 0
[2023-06-11] MEDS: AURYXIA 210 MG PO SCH ×2 (08:57→17:53)
[2023-06-11] MEDS: DOCUSATE SOD 100 MG CAP PO SCH ×2 (08:58→22:14)
[2023-06-11] MEDS: CALCITRIOL 0.25 MCG CAP PO SCH (08:58)
[2023-06-11] MEDS: LOSARTAN POTASSIUM 50 MG TAB PO SCH (08:59)
[2023-06-11] MEDS: ASPirin-EC 81 mg tab PO SCH (09:01)
[2023-06-11] MEDS: ATORVASTATIN 20 MG TAB PO SCH (09:01)
[2023-06-11] MEDS: MULTIPLE VITAMIN TAB PO SCH (09:02)
[2023-06-11] MEDS: NIFEdipine ER 30 MG TAB PO SCH (09:03)
[2023-06-11] MEDS: ASCORBIC ACID 500 MG TAB PO SCH ×2 (09:03→22:14)
[2023-06-11] MEDS: hydrALAZINE HCL 25 MG TAB PO SCH ×2 (09:04→22:14)
[2023-06-11] MEDS: CILOSTAZOL 100 MG TAB PO SCH (09:05)
[2023-06-11] MEDS: CLOPIDOGREL BISULFATE 75 MG TAB PO SCH (09:05)
[2023-06-11] MEDS: PANTOPRAZOLE 40 MG/10 ML VIAL INJ IV SCH (09:06)
[2023-06-11] MEDS: methylPREDNISolone SOD SUCC 40 MG/ML VL IV SCH ×2 (09:06→22:16)
[2023-06-11] MEDS: METOPROLOL SUCCINATE XL 50 MG TAB PO SCH ×2 (09:10→22:00)
[2023-06-11 13:02] LABS: Lymphocytes % (manual) 9 (10.0-50.0); Monocytes % (manual) 3 (0-12); Myelocytes % 1; Platelet Estimate Adequate
[2023-06-11] MEDS ORDERED: VANCOMYCIN 500 MG in D5W 5% 100 ML IV ONE (14:00)
[2023-06-12] VITALS (9 sets, daily range): BP systolic 127–174; BP diastolic 55–91; PULSE 60–78; RESP 12–19; TEMP 97.6–98.7; O2SAT 95–100
[2023-06-12] MEDS: HYDROcodone-ACET 5/325MG TAB PO PRN ×2 (05:04→22:16)
[2023-06-12] MEDS: LEVOTHYROXINE SODIUM 50 MCG TAB PO SCH (05:39)
[2023-06-12] MEDS: ACCU-CHEK COMFORT CURVE STRIP VI SCH ×4 (05:39→22:17)
[2023-06-12] MEDS: InsuLIN REG 1unit/0.01ml Soln (100units/ml) SC SCH ×4 (05:41→22:27)
[2023-06-12] MEDS: hydrALAZINE HCL 25 MG TAB PO SCH ×4 (06:00→22:16)
[2023-06-12 06:06] LABS: Hemoglobin 10.8 g/dL (12.2-16.2)
[2023-06-12 06:13] LABS: Hematocrit 32.8 % (36.0-46.0); Mean Corpuscular Hemoglobin 30.9 pg (28.0-32.0); Mean Corpuscular Hgb Conc. 32.9 g/dL (32.0-36.0); Mean Corpuscular Volume 93.9 fL (80.0-100.0); Red Blood Cells 3.49 10^6/uL (4.0-5.20); Red Cell Distribution Width 13.2 % (11.8-14.3); White Blood Cell 7.5 10^3/uL (4.4-10.8)
[2023-06-12 06:25] LABS: Band Neutrophils % (manual) 0; Basophils % (manual) 0 (0.0-2.0); Blast Cells 0; Eosinophils % (manual) 0 (0-7); Metamyelocytes % 0; Myelocytes % 0; Promyelocytes % 0; Reactive Lymphocytes 0
[2023-06-12 06:29] LABS: Alanine Aminotransferase 12 U/L (7-40); Albumin 3.5 g/dL (3.2-4.8); Alkaline Phosphatase 138 U/L (46-116); Anion Gap 11 (5-15); Aspartate Aminotransferase < 8 U/L (13-40); BUN/Creatinine Ratio 16.1 (10.0-20.0); Bilirubin, Total < 0.2 mg/dL (0.2-1.0); Calcium 9.1 mg/dL (8.5-10.1); Carbon Dioxide 25 mmol/L (20-30); Chloride 91 mmol/L (98-107); Glucose 318 mg/dL (74-106); Potassium 5.4 mmol/L (3.5-5.1); Sodium 127 mmol/L (136-145); Total Protein 6.9 g/dL (5.7-8.2)
[2023-06-12 06:37] LABS: Blood Urea Nitrogen 90 mg/dL (9-23)
[2023-06-12] MEDS ORDERED: SODIUM CHL 0.9% 1000 ML BAG XX ONE (07:00)
[2023-06-12] MEDS: AURYXIA 210 MG PO SCH ×4 (08:00→18:24)
[2023-06-12 08:39] LABS: Lymphocytes % (manual) 7 (10.0-50.0); Monocytes % (manual) 3 (0-12); Platelet Estimate Decreased
[2023-06-12 09:32] LABS: Hepatitis B Surface Antibody Positive (Negative)
[2023-06-12 09:44] LABS: Hepatitis B Surface Antigen Negative (Negative)
[2023-06-12] MEDS: METOPROLOL SUCCINATE XL 50 MG TAB PO SCH ×2 (10:00→22:16)
[2023-06-12] MEDS: ASCORBIC ACID 500 MG TAB PO SCH ×2 (11:51→22:16)
[2023-06-12] MEDS: CALCITRIOL 0.25 MCG CAP PO SCH (11:53)
[2023-06-12] MEDS: CLOPIDOGREL BISULFATE 75 MG TAB PO SCH (11:53)
[2023-06-12] MEDS: CILOSTAZOL 100 MG TAB PO SCH (11:53)
[2023-06-12] MEDS: ASPirin-EC 81 mg tab PO SCH (11:53)
[2023-06-12] MEDS: MULTIPLE VITAMIN TAB PO SCH (11:54)
[2023-06-12] MEDS: ATORVASTATIN 20 MG TAB PO SCH (11:54)
[2023-06-12] MEDS: NIFEdipine ER 30 MG TAB PO SCH (11:54)
[2023-06-12] MEDS: methylPREDNISolone SOD SUCC 40 MG/ML VL IV SCH ×2 (11:55→22:17)
[2023-06-12] MEDS: LOSARTAN POTASSIUM 50 MG TAB PO SCH (11:55)
[2023-06-12] MEDS: PANTOPRAZOLE 40 MG/10 ML VIAL INJ IV SCH (11:55)
[2023-06-12] MEDS: DOCUSATE SOD 100 MG CAP PO SCH ×2 (11:55→22:16)
[2023-06-12] MEDS ORDERED: VANCOMYCIN 500 MG in D5W 5% 100 ML IV ONE (18:00)
[2023-06-12] MEDS: POLYETHYLENE GLYCOL 17 GM PWDR PO SCH (18:09)
[2023-06-12] MEDS: cloNIDine 0.1 mg/24hr 7 DAY PATCH TD SCH (18:10)
[2023-06-13] VITALS (8 sets, daily range): BP systolic 136–166; BP diastolic 66–98; PULSE 58–65; RESP 16–19; TEMP 97.3–97.9; O2SAT 97–100
[2023-06-13 05:13] LABS: Basophils # (auto) 0 10 ^3/uL (0-0.2); Eosinophils # (auto) 0 10 ^3/uL (0-0.8); Hematocrit 33.3 % (36.0-46.0); Hemoglobin 10.9 g/dL (12.2-16.2); Lymphocytes # (auto) 0.7 10 ^3/uL (0.4-5.4); Lymphocytes % (auto) 5.9 % (10.0-50.0); Mean Corpuscular Hemoglobin 30.7 pg (28.0-32.0); Mean Corpuscular Hgb Conc. 32.6 g/dL (32.0-36.0); Mean Corpuscular Volume 94.1 fL (80.0-100.0); Monocytes # (auto) 0.3 10 ^3/uL (0-1.3); Monocytes % (auto) 2.9 % (0.0-12.0); Neutrophils # (auto) 10.5 10 ^3/uL (1.6-8.6); Neutrophils % (auto) 91.2 % (37.0-80.0); Red Blood Cells 3.54 10^6/uL (4.0-5.20); Red Cell Distribution Width 13.5 % (11.8-14.3); White Blood Cell 11.5 10^3/uL (4.4-10.8)
[2023-06-13 05:33] LABS: Alanine Aminotransferase 11 U/L (7-40); Albumin 3.5 g/dL (3.2-4.8); Alkaline Phosphatase 105 U/L (46-116); Anion Gap 10 (5-15); Aspartate Aminotransferase < 8 U/L (13-40); BUN/Creatinine Ratio 10.8 (10.0-20.0); Bilirubin, Total < 0.2 mg/dL (0.2-1.0); Calcium 9.2 mg/dL (8.5-10.1); Carbon Dioxide 23 mmol/L (20-30); Chloride 97 mmol/L (98-107); Glucose 211 mg/dL (74-106); Potassium 5.5 mmol/L (3.5-5.1); Sodium 130 mmol/L (136-145)
[2023-06-13 05:53] LABS: Blood Urea Nitrogen 47 mg/dL (9-23)
[2023-06-13] MEDS: LEVOTHYROXINE SODIUM 50 MCG TAB PO SCH (06:21)
[2023-06-13] MEDS: ACCU-CHEK COMFORT CURVE STRIP VI SCH ×4 (06:26→21:27)
[2023-06-13] MEDS: hydrALAZINE HCL 25 MG TAB PO SCH ×3 (06:26→23:30)
[2023-06-13] MEDS: InsuLIN REG 1unit/0.01ml Soln (100units/ml) SC SCH ×4 (06:27→21:23)
[2023-06-13] MEDS: AURYXIA 210 MG PO SCH ×5 (08:00→18:27)
[2023-06-13] MEDS: METOPROLOL SUCCINATE XL 50 MG TAB PO SCH ×2 (10:00→23:30)
[2023-06-13] MEDS: POLYETHYLENE GLYCOL 17 GM PWDR PO SCH (10:20)
[2023-06-13] MEDS: methylPREDNISolone SOD SUCC 40 MG/ML VL IV SCH ×2 (10:20→21:35)
[2023-06-13] MEDS: PANTOPRAZOLE 40 MG/10 ML VIAL INJ IV SCH (10:20)
[2023-06-13] MEDS: DOCUSATE SOD 100 MG CAP PO SCH ×2 (10:22→21:36)
[2023-06-13] MEDS: ASCORBIC ACID 500 MG TAB PO SCH ×2 (10:22→21:35)
[2023-06-13] MEDS: ATORVASTATIN 20 MG TAB PO SCH (10:22)
[2023-06-13] MEDS: CLOPIDOGREL BISULFATE 75 MG TAB PO SCH (10:22)
[2023-06-13] MEDS: ASPirin-EC 81 mg tab PO SCH (10:23)
[2023-06-13] MEDS: CALCITRIOL 0.25 MCG CAP PO SCH (10:23)
[2023-06-13] MEDS: MULTIPLE VITAMIN TAB PO SCH (10:23)
[2023-06-13] MEDS: CILOSTAZOL 100 MG TAB PO SCH (10:23)
[2023-06-13] MEDS: NIFEdipine ER 30 MG TAB PO SCH (10:24)
[2023-06-13] MEDS: LOSARTAN POTASSIUM 50 MG TAB PO SCH (10:28)
[2023-06-13] MEDS ORDERED: SODIUM ZIRCONIUM CYCL 10 GM PAK PO ONE (11:15)
[2023-06-14] VITALS (9 sets, daily range): BP systolic 135–176; BP diastolic 62–97; PULSE 59–63; RESP 12–18; TEMP 97.5–98.7; O2SAT 98–100
[2023-06-14] MEDS: LEVOTHYROXINE SODIUM 50 MCG TAB PO SCH (05:15)
[2023-06-14] MEDS: hydrALAZINE HCL 25 MG TAB PO SCH ×3 (05:16→23:38)
[2023-06-14] MEDS: ACCU-CHEK COMFORT CURVE STRIP VI SCH ×4 (05:16→23:37)
[2023-06-14] MEDS: InsuLIN REG 1unit/0.01ml Soln (100units/ml) SC SCH ×4 (05:25→23:39)
[2023-06-14 06:00] LABS: Hematocrit 33.2 % (36.0-46.0); Hemoglobin 10.6 g/dL (12.2-16.2)
[2023-06-14] MEDS ORDERED: SODIUM CHL 0.9% 1000 ML BAG XX ONE (07:00)
[2023-06-14] MEDS: AURYXIA 210 MG PO SCH ×5 (08:00→17:23)
[2023-06-14] MEDS: ASCORBIC ACID 500 MG TAB PO SCH ×2 (10:00→23:35)
[2023-06-14] MEDS: MULTIPLE VITAMIN TAB PO SCH (10:00)
[2023-06-14] MEDS: LOSARTAN POTASSIUM 50 MG TAB PO SCH (10:00)
[2023-06-14] MEDS: PANTOPRAZOLE 40 MG/10 ML VIAL INJ IV SCH (10:00)
[2023-06-14] MEDS: CLOPIDOGREL BISULFATE 75 MG TAB PO SCH (10:00)
[2023-06-14] MEDS: CALCITRIOL 0.25 MCG CAP PO SCH (10:00)
[2023-06-14] MEDS: CILOSTAZOL 100 MG TAB PO SCH (10:00)
[2023-06-14] MEDS: ASPirin-EC 81 mg tab PO SCH (10:00)
[2023-06-14] MEDS: DOCUSATE SOD 100 MG CAP PO SCH ×2 (10:00→23:35)
[2023-06-14] MEDS: ATORVASTATIN 20 MG TAB PO SCH (10:00)
[2023-06-14] MEDS: POLYETHYLENE GLYCOL 17 GM PWDR PO SCH (10:00)
[2023-06-14] MEDS: NIFEdipine ER 30 MG TAB PO SCH (10:00)
[2023-06-14] MEDS: METOPROLOL SUCCINATE XL 50 MG TAB PO SCH ×2 (10:00→23:37)
[2023-06-14] MEDS ORDERED: hydrALAZINE HCL 25 MG TAB PO PRN (10:15)
[2023-06-14] MEDS: methylPREDNISolone SOD SUCC 40 MG/ML VL IV SCH ×2 (10:47→23:29)
[2023-06-14] MEDS ORDERED: EPOETIN ALFA-EPBX 4,000 UNIT/ML VIAL SC ONE (21:00)
[2023-06-14] MEDS: BISACODYL 10 MG RECT SUPP PR SCH (23:29)
[2023-06-15] VITALS (7 sets, daily range): BP systolic 113–158; BP diastolic 30–70; PULSE 50–71; RESP 17–20; TEMP 97.3–98.6; O2SAT 100
[2023-06-15] MEDS: hydrALAZINE HCL 25 MG TAB PO SCH ×3 (05:30→22:23)
[2023-06-15] MEDS: HYDROcodone-ACET 5/325MG TAB PO PRN ×2 (05:30→13:58)
[2023-06-15] MEDS: LEVOTHYROXINE SODIUM 50 MCG TAB PO SCH (05:30)
[2023-06-15 05:39] LABS: Hematocrit 31.9 % (36.0-46.0); Hemoglobin 10.1 g/dL (12.2-16.2); Mean Corpuscular Hemoglobin 31.2 pg (28.0-32.0); Mean Corpuscular Hgb Conc. 31.7 g/dL (32.0-36.0); Mean Corpuscular Volume 98.3 fL (80.0-100.0); Red Blood Cells 3.25 10^6/uL (4.0-5.20); White Blood Cell 16.8 10^3/uL (4.4-10.8)
[2023-06-15 05:42] LABS: Chloride 93 mmol/L (98-107); Sodium 127 mmol/L (136-145)
[2023-06-15 05:43] LABS: Anion Gap 12 (5-15); Calcium 8.6 mg/dL (8.5-10.1); Carbon Dioxide 22 mmol/L (20-30)
[2023-06-15 05:46] LABS: Basophils % (manual) 0 (0.0-2.0); Blast Cells 0; Eosinophils % (manual) 0 (0-7); Lymphocytes % (manual) 0 (10.0-50.0); Metamyelocytes % 0; Myelocytes % 0; Promyelocytes % 0; Reactive Lymphocytes 0
[2023-06-15 05:48] LABS: BUN/Creatinine Ratio 11.6 (10.0-20.0); Glucose 271 mg/dL (74-106)
[2023-06-15 06:23] LABS: Blood Urea Nitrogen 81 mg/dL (9-23); Potassium 6.8 mmol/L (3.5-5.1)
[2023-06-15] MEDS ORDERED: SODIUM CHL 0.9% 1000 ML BAG XX ONE (06:30)
[2023-06-15 06:54] LABS: Band Neutrophils % (manual) 2; Monocytes % (manual) 3 (0-12); Platelet Estimate Increased; RBC Morphology Normal
[2023-06-15] MEDS: ACCU-CHEK COMFORT CURVE STRIP VI SCH ×4 (07:00→22:27)
[2023-06-15] MEDS: InsuLIN REG 1unit/0.01ml Soln (100units/ml) SC SCH ×4 (07:59→22:21)
[2023-06-15] MEDS: AURYXIA 210 MG PO SCH ×5 (08:00→18:16)
[2023-06-15] MEDS: ASPirin-EC 81 mg tab PO SCH (10:00)
[2023-06-15] MEDS: CLOPIDOGREL BISULFATE 75 MG TAB PO SCH (10:00)
[2023-06-15] MEDS: methylPREDNISolone SOD SUCC 40 MG/ML VL IV SCH ×2 (10:54→22:22)
[2023-06-15] MEDS: PANTOPRAZOLE 40 MG/10 ML VIAL INJ IV SCH (10:54)
[2023-06-15] MEDS: METOPROLOL SUCCINATE XL 50 MG TAB PO SCH ×2 (10:55→22:24)
[2023-06-15] MEDS: CILOSTAZOL 100 MG TAB PO SCH (10:55)
[2023-06-15] MEDS: DOCUSATE SOD 100 MG CAP PO SCH ×2 (10:55→22:23)
[2023-06-15] MEDS: ATORVASTATIN 20 MG TAB PO SCH (10:56)
[2023-06-15] MEDS: ASCORBIC ACID 500 MG TAB PO SCH ×2 (10:56→22:22)
[2023-06-15] MEDS: CALCITRIOL 0.25 MCG CAP PO SCH (10:57)
[2023-06-15] MEDS: NIFEdipine ER 30 MG TAB PO SCH (10:57)
[2023-06-15] MEDS: LOSARTAN POTASSIUM 50 MG TAB PO SCH (10:58)
[2023-06-15] MEDS: POLYETHYLENE GLYCOL 17 GM PWDR PO SCH (10:58)
[2023-06-15] MEDS: MULTIPLE VITAMIN TAB PO SCH (10:58)
[2023-06-15] MEDS ORDERED: EPOETIN ALFA-EPBX 4,000 UNIT/ML VIAL SC ONE (21:00)
[2023-06-15] MEDS: BISACODYL 10 MG RECT SUPP PR SCH (22:23)
[2023-06-16] VITALS (9 sets, daily range): BP systolic 134–175; BP diastolic 55–69; PULSE 57–71; RESP 14–18; TEMP 96–98.8; O2SAT 98–100
[2023-06-16] MEDS: LEVOTHYROXINE SODIUM 50 MCG TAB PO SCH (06:37)
[2023-06-16] MEDS: InsuLIN REG 1unit/0.01ml Soln (100units/ml) SC SCH ×4 (06:37→22:42)
[2023-06-16] MEDS: hydrALAZINE HCL 25 MG TAB PO SCH ×3 (06:38→21:49)
[2023-06-16] MEDS ORDERED: LIDOCAINE 2% JELLY 11ml (GLYDO) ONE (06:53)
[2023-06-16] MEDS ORDERED: SUCCINYLCHOLINE CHLORIDE 20 MG/ML 10ML VIAL IV ONE (06:53)
[2023-06-16] MEDS ORDERED: LIDOCAINE 1% HCL (LOCAL ANESTH.) INJ 20ML MDV ONE (06:55)
[2023-06-16] MEDS: ACCU-CHEK COMFORT CURVE STRIP VI SCH ×4 (06:55→21:50)
[2023-06-16] MEDS: AURYXIA 210 MG PO SCH ×5 (07:52→17:45)
[2023-06-16] MEDS ORDERED: ceFAZolin 1GM/50ML 100 ML IV ONE (08:35)
[2023-06-16] MEDS ORDERED: MIDAZOLAM HCL 2MG/2ML 2ml VIAL (1mg/ml) ONE (08:45)
[2023-06-16] MEDS ORDERED: fentaNYL CITRATE 100 MCG/2 ML VL ONE (08:45)
[2023-06-16] MEDS ORDERED: DexAMETHasone SOD PHOS 10MG/1ML VIAL INJ ONE (09:16)
[2023-06-16] MEDS ORDERED: PROPOFOL 10 MG/ML 20 ML IV ONE (09:16)
[2023-06-16] MEDS ORDERED: ONDANSETRON HCL 4 MG/2 ML VIAL IV PRN (09:30)
[2023-06-16] MEDS ORDERED: fentaNYL CITRATE 100 MCG/2 ML VL IV PRN (09:30)
[2023-06-16] MEDS ORDERED: MIDAZOLAM HCL 2MG/2ML 2ml VIAL (1mg/ml) IV PRN (09:30)
[2023-06-16] MEDS ORDERED: ePHEDrine SULFATE 50 MG/ML AMP IV PRN (09:30)
[2023-06-16] MEDS ORDERED: LABETALOL HCL 5 MG/ML 4ML SYRINGE IV PRN (09:30)
[2023-06-16] MEDS: POLYETHYLENE GLYCOL 17 GM PWDR PO SCH (10:00)
[2023-06-16] MEDS: CLOPIDOGREL BISULFATE 75 MG TAB PO SCH (10:00)
[2023-06-16] MEDS: ATORVASTATIN 20 MG TAB PO SCH (10:00)
[2023-06-16] MEDS: CALCITRIOL 0.25 MCG CAP PO SCH (10:00)
[2023-06-16] MEDS: ASCORBIC ACID 500 MG TAB PO SCH ×2 (10:00→21:49)
[2023-06-16] MEDS: DOCUSATE SOD 100 MG CAP PO SCH ×2 (10:00→21:50)
[2023-06-16] MEDS: ASPirin-EC 81 mg tab PO SCH (10:00)
[2023-06-16] MEDS: MULTIPLE VITAMIN TAB PO SCH (10:00)
[2023-06-16] MEDS: CILOSTAZOL 100 MG TAB PO SCH (10:00)
[2023-06-16] MEDS: methylPREDNISolone SOD SUCC 40 MG/ML VL IV SCH ×2 (10:43→21:51)
[2023-06-16] MEDS: PANTOPRAZOLE 40 MG/10 ML VIAL INJ IV SCH (10:43)
[2023-06-16] MEDS: NIFEdipine ER 30 MG TAB PO SCH (10:43)
[2023-06-16] MEDS: METOPROLOL SUCCINATE XL 50 MG TAB PO SCH ×2 (10:44→21:50)
[2023-06-16] MEDS: LOSARTAN POTASSIUM 50 MG TAB PO SCH (10:44)
[2023-06-16] MEDS: ONDANSETRON HCL 4 MG/2 ML VIAL IV PRN (10:55)
[2023-06-16 12:11] LABS: Basophils # (auto) 0 10 ^3/uL (0-0.2); Basophils % (auto) 0.2 % (0.0-2.0); Eosinophils # (auto) 0 10 ^3/uL (0-0.8); Hematocrit 33.6 % (36.0-46.0); Hemoglobin 10.7 g/dL (12.2-16.2); Lymphocytes # (auto) 0.4 10 ^3/uL (0.4-5.4); Lymphocytes % (auto) 2.7 % (10.0-50.0); Mean Corpuscular Hemoglobin 31.2 pg (28.0-32.0); Mean Corpuscular Hgb Conc. 31.8 g/dL (32.0-36.0); Mean Corpuscular Volume 98.3 fL (80.0-100.0); Monocytes # (auto) 0.3 10 ^3/uL (0-1.3); Monocytes % (auto) 2.1 % (0.0-12.0); Neutrophils # (auto) 14.2 10 ^3/uL (1.6-8.6); Red Blood Cells 3.42 10^6/uL (4.0-5.20); Red Cell Distribution Width 14.9 % (11.8-14.3); White Blood Cell 14.9 10^3/uL (4.4-10.8)
[2023-06-16 12:28] LABS: Anion Gap 11 (5-15); Carbon Dioxide 28 mmol/L (20-30); Chloride 96 mmol/L (98-107); Potassium 4.5 mmol/L (3.5-5.1)
[2023-06-16 12:31] LABS: Partial Thromboplastin Time 24.5 SEC (24.5-34.5); Prothrombin Time 10.5 sec (9.3-11.8); Sodium 135 mmol/L (136-145)
[2023-06-16 12:34] LABS: BUN/Creatinine Ratio 12.9 (10.0-20.0); Glucose 217 mg/dL (74-106)
[2023-06-16 12:43] LABS: Blood Urea Nitrogen 63 mg/dL (9-23)
[2023-06-16] MEDS: hydrALAZINE HCL 20 MG/ML VL IV PRN (16:54)
[2023-06-16] MEDS ORDERED: VANCOMYCIN 500 MG in D5W 5% 100 ML IV ONE (18:00)
[2023-06-16] MEDS: ACETAMINOPHEN 325 MG TAB PO PRN (21:50)
[2023-06-16] MEDS: BISACODYL 10 MG RECT SUPP PR SCH (21:50)
[2023-06-17] VITALS (7 sets, daily range): BP systolic 107–177; BP diastolic 52–75; PULSE 57–74; RESP 16–18; TEMP 36.8; O2SAT 95–100
[2023-06-17] MEDS: InsuLIN REG 1unit/0.01ml Soln (100units/ml) SC SCH ×2 (06:37→11:30)
[2023-06-17] MEDS: hydrALAZINE HCL 25 MG TAB PO SCH ×2 (06:37→12:13)
[2023-06-17] MEDS: ACETAMINOPHEN 325 MG TAB PO PRN (06:38)
[2023-06-17] MEDS: LEVOTHYROXINE SODIUM 50 MCG TAB PO SCH (06:38)
[2023-06-17] MEDS: ACCU-CHEK COMFORT CURVE STRIP VI SCH ×2 (06:38→11:54)
[2023-06-17] MEDS: hydrALAZINE HCL 20 MG/ML VL IV PRN (06:38)
[2023-06-17] MEDS ORDERED: SODIUM CHL 0.9% 1000 ML BAG XX ONE (07:00)
[2023-06-17 07:54] LABS: Hematocrit 30.6 % (36.0-46.0); Hemoglobin 9.9 g/dL (12.2-16.2)
[2023-06-17] MEDS: AURYXIA 210 MG PO SCH ×3 (08:00→12:11)
[2023-06-17] MEDS: DOCUSATE SOD 100 MG CAP PO SCH (08:02)
[2023-06-17] MEDS: methylPREDNISolone SOD SUCC 40 MG/ML VL IV SCH (08:02)
[2023-06-17] MEDS: PANTOPRAZOLE 40 MG/10 ML VIAL INJ IV SCH (08:02)
[2023-06-17] MEDS: POLYETHYLENE GLYCOL 17 GM PWDR PO SCH (08:03)
[2023-06-17] MEDS: ASPirin-EC 81 mg tab PO SCH (08:03)
[2023-06-17] MEDS: ATORVASTATIN 20 MG TAB PO SCH (08:03)
[2023-06-17] MEDS: LOSARTAN POTASSIUM 50 MG TAB PO SCH (08:03)
[2023-06-17] MEDS: CILOSTAZOL 100 MG TAB PO SCH (08:04)
[2023-06-17] MEDS: NIFEdipine ER 30 MG TAB PO SCH (08:04)
[2023-06-17] MEDS: CLOPIDOGREL BISULFATE 75 MG TAB PO SCH (08:04)
[2023-06-17] MEDS: MULTIPLE VITAMIN TAB PO SCH (08:04)
[2023-06-17] MEDS: CALCITRIOL 0.25 MCG CAP PO SCH (08:05)
[2023-06-17] MEDS: ASCORBIC ACID 500 MG TAB PO SCH (08:05)
[2023-06-17] MEDS: METOPROLOL SUCCINATE XL 50 MG TAB PO SCH (08:05)
[2023-06-17 08:25] LABS: % Iron Saturation 84.1 % (15-50)
[2023-06-17] MEDS ORDERED: FER325T PO (13:19)
[2023-06-17] MEDS ORDERED: DOCU-265 PO (13:19)
[2023-06-17] MEDS ORDERED: CAL025T PO (13:19)
[2023-06-17] MEDS ORDERED: CLOP75TA70 PO (13:19)
[2023-06-17] MEDS ORDERED: ATOR20TA50 PO (13:19)
[2023-06-17] MEDS ORDERED: CILO50TA PO (13:19)
[2023-06-17] MEDS ORDERED: EPOETIN ALFA-EPBX 4,000 UNIT/ML VIAL SC ONE (21:00)
== END 2023-06-17 17:55 | disposition home health service (06) | DRG 853 ==
LOC: EDBD 12:48 → ER 12:48 → TELE 16:36 → TELE-CENTR 21:20 → TELE-EAST 06-12 06:36
PROVIDERS: ADMIT Nurse Practitioner Family; ATTEND Nurse Practitioner
PROC: 30233N1 Transfusion of Nonautologous Red Blood Cells into Peripheral Vein, Percutaneous Approach (ICD-10-PCS; 2023-06-06)
PROC: 5A1D70Z Performance of Urinary Filtration, Intermittent, Less than 6 Hours Per Day (ICD-10-PCS; 2023-06-06)
PROC: 5A1D70Z Performance of Urinary Filtration, Intermittent, Less than 6 Hours Per Day (ICD-10-PCS; 2023-06-07)
PROC: 5A1D70Z Performance of Urinary Filtration, Intermittent, Less than 6 Hours Per Day (ICD-10-PCS; 2023-06-09)
PROC: 5A1D70Z Performance of Urinary Filtration, Intermittent, Less than 6 Hours Per Day (ICD-10-PCS; 2023-06-13)
PROC: 5A1D70Z Performance of Urinary Filtration, Intermittent, Less than 6 Hours Per Day (ICD-10-PCS; 2023-06-15)
PROC: 0WPG03Z Removal of Infusion Device from Peritoneal Cavity, Open Approach (ICD-10-PCS; principal; 2023-06-16 08:39)
PROC: 5A1D70Z Performance of Urinary Filtration, Intermittent, Less than 6 Hours Per Day (ICD-10-PCS; 2023-06-17)
DX: A40.1 Sepsis due to streptococcus, group B (principal); J18.9 Pneumonia, unspecified organism; N18.6 End stage renal disease; R53.2 Functional quadriplegia; I12.0 Hypertensive chronic kidney disease with stage 5 chronic kidney disease or end stage renal disease; J81.1 Chronic pulmonary edema; E11.52 Type 2 diabetes mellitus with diabetic peripheral angiopathy with gangrene; N25.81 Secondary hyperparathyroidism of renal origin; T85.71XA Infection and inflammatory reaction due to peritoneal dialysis catheter, initial encounter; Z16.12 Extended spectrum beta lactamase (ESBL) resistance; Z99.2 Dependence on renal dialysis; D63.1 Anemia in chronic kidney disease; E87.5 Hyperkalemia; Z74.01 Bed confinement status; E87.70 Fluid overload, unspecified; L89.329 Pressure ulcer of left buttock, unspecified stage; L89.319 Pressure ulcer of right buttock, unspecified stage; R65.20 Severe sepsis without septic shock; I25.10 Atherosclerotic heart disease of native coronary artery without angina pectoris; Y83.8 Other surgical procedures as the cause of abnormal reaction of the patient, or of later complication, without mention of misadventure at the time of the procedure; Y92.89 Other specified places as the place of occurrence of the external cause; F32.A Depression, unspecified; F41.9 Anxiety disorder, unspecified; L89.159 Pressure ulcer of sacral region, unspecified stage; E78.5 Hyperlipidemia, unspecified; B96.20 Unspecified Escherichia coli [E. coli] as the cause of diseases classified elsewhere; B96.1 Klebsiella pneumoniae [K. pneumoniae] as the cause of diseases classified elsewhere; E03.9 Hypothyroidism, unspecified; R77.8 Other specified abnormalities of plasma proteins; B96.4 Proteus (mirabilis) (morganii) as the cause of diseases classified elsewhere; Z82.49 Family history of ischemic heart disease and other diseases of the circulatory system; Z79.899 Other long term (current) drug therapy; Z79.82 Long term (current) use of aspirin; Z83.3 Family history of diabetes mellitus; E11.65 Type 2 diabetes mellitus with hyperglycemia; Z89.511 Acquired absence of right leg below knee; Z89.512 Acquired absence of left leg below knee; Z89.611 Acquired absence of right leg above knee; Z89.612 Acquired absence of left leg above knee; Z95.5 Presence of coronary angioplasty implant and graft; Z79.4 Long term (current) use of insulin
CPT/HCPCS: 36415; 36600; 71045; 80048; 80053; 80202; 82010; 82565; 82728; 82805; 82962; 83036; 83540; 83550; 83605; 83880; 84132; 84443; 84484; 84702; 85007; 85014; 85018; 85025; 85027; 85610; 85730; 86706; 86850; 86900; 86901; 86920; 87040; 87070; 87075; 87077; 87186; 87205; 87340; 90935; 93005; 93306; 94640; 96365; 96367; 96368; 99291; C9113; G0378; J0330; J0690; J1100; J1642; J1815; J2001; J2185; J2250; J2405; J2543; J2704; J7060

== ENCOUNTER 2024-06-19 12:48 | Inpatient (IN) | payer MEDICARE, MEDICAID ==
[~2024-06-19] VITALS: Ht 167.6 cm; Wt 58.8 kg
[~2024-06-19 12:48] MED LIST changes: -ASPI-325 PO; +ASPI-543 PO; +ATOR20TA50 PO; -ATOR40TA52 PO; +CAL025T PO; -CALC0.5C PO; -CILO100T PO; +CILO50TA2 PO; -CLON0.1D13 TD; +CLON0.2D13 TD; +FER325T PO; -FERR1TAB17 PO; -FERR325T24 PO; +HYDR50TA47 PO; +LEVO50TA7 PO; -LEVO75TA6 PO; +LOSA-534 PO; -LOSA50TA46 PO; -NIFE1TAB31 PO; +NIFE1TAB36 PO
[2024-06-19 13:30] VITALS: PULSE 79; RESP 12; O2SAT 96
[2024-06-19] MEDS: ONDANSETRON HCL 4 MG/2 ML VIAL IV ONE ×2 (13:48→23:46)
[2024-06-19] MEDS: hydrALAZINE HCL 20 MG/ML VL IV ONE (13:49)
[2024-06-19] MEDS: MORPHINE SULFATE 4 MG/ML SYR/VIAL IV ONE ×2 (13:49→18:02)
[2024-06-19 14:10] LABS: Basophils # (auto) 0.1 10 ^3/uL (0-0.2); Basophils % (auto) 0.5 % (0.0-2.0); Eosinophils # (auto) 0 10 ^3/uL (0-0.8); Hematocrit 39.6 % (36.0-46.0); Lymphocytes # (auto) 0.9 10 ^3/uL (0.4-5.4); Mean Corpuscular Hemoglobin 31.3 pg (28.0-32.0); Mean Corpuscular Hgb Conc. 32.7 g/dL (32.0-36.0); Mean Corpuscular Volume 95.9 fL (80.0-100.0); Monocytes # (auto) 0.7 10 ^3/uL (0-1.3); Monocytes % (auto) 5.5 % (0.0-12.0); Neutrophils # (auto) 10.8 10 ^3/uL (1.6-8.6); Platelet Count (auto) 366 10^3/uL (140-450); Red Blood Cells 4.13 10^6/uL (4.0-5.20); Red Cell Distribution Width 15.6 % (11.8-14.3); White Blood Cell 12.5 10^3/uL (4.4-10.8)
[2024-06-19 14:16] LABS: Alanine Aminotransferase 42 U/L (7-40); Albumin 4.5 g/dL (3.2-4.8); Alkaline Phosphatase 151 U/L (46-116); Anion Gap 11 (5-15); Aspartate Aminotransferase 21 U/L (13-40); BUN/Creatinine Ratio 13.7 (10.0-20.0); Blood Urea Nitrogen 55 mg/dL (9-23); Calcium 10.3 mg/dL (8.7-10.4); Carbon Dioxide 29 mmol/L (20-31); Chloride 93 mmol/L (98-107); Glucose 129 mg/dL (74-106); Potassium 4.4 mmol/L (3.5-5.1); Sodium 133 mmol/L (136-145)
[2024-06-19 14:17] LABS: Bilirubin, Total 0.3 mg/dL (0.2-1.0); Total Protein 7.6 g/dL (5.7-8.2)
[2024-06-19] MEDS: NITROGLYCERIN 2% OINT 1GM PKG TD ONE (18:01)
[2024-06-19] MEDS: LABETALOL HCL 20 MG/4 ML VL IV ONE (18:02)
[2024-06-19 18:33] LABS: COVID19 ANTIGEN SOFIA FIA NEGATIVE (NEGATIVE); Rapid Influenza A Negative (Negative); Rapid Influenza B Negative (Negative)
[2024-06-19 20:00] VITALS: PULSE 80; RESP 17; O2SAT 100
[2024-06-19] MEDS ORDERED: NITROGLYCERIN 0.4 MG SL TAB SL PRN (23:15)
[2024-06-19] MEDS: hydrALAZINE HCL 20 MG/ML VL IV PRN (23:47)
[2024-06-19] MEDS: MORPHINE SULFATE INJ 2 MG/ml SYRG IV PRN (23:49)
[2024-06-20] VITALS (8 sets, daily range): BP systolic 111–182; BP diastolic 51–94; PULSE 72–83; RESP 18–20; TEMP 98–98.8; O2SAT 99–100
[2024-06-20 02:48] LABS: Partial Thromboplastin Time 27.5 SEC (24.5-34.5); Prothrombin Time 10.6 sec (9.3-11.8)
[2024-06-20] MEDS ORDERED: VANCOMYCIN PER PHARMACY 0 MG IV SCH (03:30)
[2024-06-20] MEDS: ACETAMINOPHEN 325 MG TAB PO PRN (06:01)
[2024-06-20] MEDS: VANCOMYCIN 1GM/250ML 200 ML IV ONE (06:06)
[2024-06-20 08:51] LABS: Basophils # (auto) 0.1 10 ^3/uL (0-0.2); Basophils % (auto) 0.9 % (0.0-2.0); Eosinophils # (auto) 0.1 10 ^3/uL (0-0.8); Eosinophils % (auto) 0.8 % (0.0-7.0); Hematocrit 35.1 % (36.0-46.0); Hemoglobin 11.4 g/dL (12.2-16.2); Lymphocytes # (auto) 0.9 10 ^3/uL (0.4-5.4); Lymphocytes % (auto) 9.2 % (10.0-50.0); Mean Corpuscular Hemoglobin 31.6 pg (28.0-32.0); Mean Corpuscular Hgb Conc. 32.5 g/dL (32.0-36.0); Mean Corpuscular Volume 97.1 fL (80.0-100.0); Monocytes % (auto) 10.2 % (0.0-12.0); Neutrophils # (auto) 7.4 10 ^3/uL (1.6-8.6); Neutrophils % (auto) 78.9 % (37.0-80.0); Platelet Count (auto) 366 10^3/uL (140-450); Red Blood Cells 3.62 10^6/uL (4.0-5.20); White Blood Cell 9.4 10^3/uL (4.4-10.8)
[2024-06-20 09:01] LABS: Chloride 92 mmol/L (98-107); Potassium 5.2 mmol/L (3.5-5.1); Sodium 134 mmol/L (136-145)
[2024-06-20 09:02] LABS: Anion Gap 11 (5-15); Calcium 9.9 mg/dL (8.7-10.4); Carbon Dioxide 31 mmol/L (20-31)
[2024-06-20 09:07] LABS: BUN/Creatinine Ratio 12.5 (10.0-20.0); Blood Urea Nitrogen 63 mg/dL (9-23); Glucose 79 mg/dL (74-106)
[2024-06-20] MEDS: CEFEPIME 1GM/ 50ML 50 ML IV ONE (09:40)
[2024-06-20] MEDS: HEPARIN SODIUM (PORCINE) 5000 UNITS/ML 1ML VIAL SC SCH (09:42)
[2024-06-20] MEDS: NIFEdipine ER 30 MG TAB PO SCH (09:43)
[2024-06-20] MEDS: ONDANSETRON HCL 4 MG/2 ML VIAL IV PRN (09:43)
[2024-06-20] MEDS: LOSARTAN POTASSIUM 50 MG TAB PO SCH (10:00)
[2024-06-20] MEDS: METOPROLOL SUCCINATE XL 50 MG TAB PO SCH (10:00)
[2024-06-20] MEDS: SODIUM ZIRCONIUM CYCL 10 GM PAK PO SCH (18:27)
[2024-06-21] VITALS (8 sets, daily range): BP systolic 120–148; BP diastolic 53–71; PULSE 62–83; RESP 16–18; TEMP 97.4–98.3; O2SAT 96–100
[2024-06-21] MEDS: CEFEPIME 1GM/ 50ML 50 ML IV SCH (03:13)
[2024-06-21 07:17] LABS: Alanine Aminotransferase 27 U/L (7-40); Alkaline Phosphatase 127 U/L (46-116); Anion Gap 19 (5-15); Aspartate Aminotransferase 21 U/L (13-40); BUN/Creatinine Ratio 9.6 (10.0-20.0); Blood Urea Nitrogen 60 mg/dL (9-23); Carbon Dioxide 21 mmol/L (20-31); Chloride 89 mmol/L (98-107); Glucose 60 mg/dL (74-106); Potassium 5.4 mmol/L (3.5-5.1)
[2024-06-21 07:18] LABS: Albumin 4.4 g/dL (3.2-4.8); Bilirubin, Total 0.2 mg/dL (0.2-1.0); Total Protein 7.7 g/dL (5.7-8.2)
[2024-06-21 07:22] LABS: Sodium 129 mmol/L (136-145)
[2024-06-21] MEDS: CILOSTAZOL 100 MG TAB PO SCH (10:56)
[2024-06-21] MEDS: ASPirin-EC 81 mg tab PO SCH (10:57)
[2024-06-21] MEDS: cloNIDine 0.2 mg/24hr 7DAY PATCH TD SCH (10:57)
[2024-06-21] MEDS: SODIUM CHL 0.9% 1000 ML BAG XX ONE (11:00)
[2024-06-21 12:23] LABS: Hematocrit 33.4 % (36.0-46.0); Hemoglobin 11.1 g/dL (12.2-16.2)
[2024-06-21] MEDS ORDERED: EPOETIN ALFA-EPBX 10,000 UNIT/1ML VIAL SC ONE (21:00)
[2024-06-22] VITALS (8 sets, daily range): BP systolic 100–163; BP diastolic 57–81; PULSE 65–86; RESP 16–20; TEMP 97–99.1; O2SAT 94–100
[2024-06-22 05:57] LABS: Basophils # (auto) 0.1 10 ^3/uL (0-0.2); Eosinophils # (auto) 0 10 ^3/uL (0-0.8); Eosinophils % (auto) 0.4 % (0.0-7.0); Hematocrit 32.8 % (36.0-46.0); Hemoglobin 10.8 g/dL (12.2-16.2); Lymphocytes # (auto) 0.8 10 ^3/uL (0.4-5.4); Lymphocytes % (auto) 12.3 % (10.0-50.0); Mean Corpuscular Hemoglobin 31.7 pg (28.0-32.0); Monocytes # (auto) 0.7 10 ^3/uL (0-1.3); Monocytes % (auto) 10.7 % (0.0-12.0); Neutrophils # (auto) 4.7 10 ^3/uL (1.6-8.6); Neutrophils % (auto) 75.6 % (37.0-80.0); Nucleated Red Blood Cells % 0.1 %; Platelet Count (auto) 345 10^3/uL (140-450); Red Blood Cells 3.42 10^6/uL (4.0-5.20); Red Cell Distribution Width 15.1 % (11.8-14.3); White Blood Cell 6.2 10^3/uL (4.4-10.8)
[2024-06-22 09:16] LABS: Chloride 92 mmol/L (98-107); Potassium 4.3 mmol/L (3.5-5.1)
[2024-06-22 09:17] LABS: Anion Gap 16 (5-15); Calcium 9.5 mg/dL (8.7-10.4); Carbon Dioxide 26 mmol/L (20-31)
[2024-06-22 09:18] LABS: Sodium 134 mmol/L (136-145)
[2024-06-22 09:22] LABS: BUN/Creatinine Ratio 10.8 (10.0-20.0); Blood Urea Nitrogen 53 mg/dL (9-23); Glucose 65 mg/dL (74-106)
[2024-06-23] VITALS (9 sets, daily range): BP systolic 112–152; BP diastolic 44–87; PULSE 62–80; RESP 17–19; TEMP 97–99; O2SAT 98–100
[2024-06-23 06:25] LABS: Basophils # (auto) 0.1 10 ^3/uL (0-0.2); Eosinophils # (auto) 0.1 10 ^3/uL (0-0.8); Eosinophils % (auto) 1.6 % (0.0-7.0); Hematocrit 29.8 % (36.0-46.0); Hemoglobin 9.8 g/dL (12.2-16.2); Lymphocytes # (auto) 0.9 10 ^3/uL (0.4-5.4); Lymphocytes % (auto) 14.4 % (10.0-50.0); Mean Corpuscular Hemoglobin 31.7 pg (28.0-32.0); Mean Corpuscular Hgb Conc. 32.9 g/dL (32.0-36.0); Mean Corpuscular Volume 96.2 fL (80.0-100.0); Monocytes # (auto) 0.8 10 ^3/uL (0-1.3); Monocytes % (auto) 14.3 % (0.0-12.0); Neutrophils # (auto) 4.1 10 ^3/uL (1.6-8.6); Neutrophils % (auto) 68.7 % (37.0-80.0); Nucleated Red Blood Cells % 0.1 %; Platelet Count (auto) 287 10^3/uL (140-450); Red Cell Distribution Width 14.9 % (11.8-14.3); White Blood Cell 5.9 10^3/uL (4.4-10.8)
[2024-06-23 06:44] LABS: Calcium 9.2 mg/dL (8.7-10.4); Chloride 90 mmol/L (98-107); Potassium 4.1 mmol/L (3.5-5.1); Sodium 133 mmol/L (136-145)
[2024-06-23 06:45] LABS: Anion Gap 15 (5-15); Carbon Dioxide 28 mmol/L (20-31)
[2024-06-23 06:50] LABS: Blood Urea Nitrogen 60 mg/dL (9-23); Glucose 67 mg/dL (74-106)
[2024-06-23] MEDS ORDERED: VANCOMYCIN 1GM/250ML 250 ML IV ONE (09:00)
[2024-06-23] MEDS: PANTOPRAZOLE 40 MG/10 ML VIAL INJ IV SCH (11:05)
[2024-06-23] MEDS: LORazepam 2MG/ML-1ML VIAL IM ONE (12:12)
[2024-06-23] MEDS: METOCLOPRAMIDE HCL 5MG/ml INJ 2ml VIAL IV ONE (12:13)
[2024-06-23] MEDS: METOCLOPRAMIDE HCL 5MG/ml INJ 2ml VIAL IV SCH (19:18)
[2024-06-24] VITALS (8 sets, daily range): BP systolic 99–134; BP diastolic 59–83; PULSE 66–94; RESP 16–19; TEMP 97.4–97.6; O2SAT 98–100
[2024-06-24] MEDS ORDERED: SODIUM CHL 0.9% 1000 ML BAG XX ONE (07:00)
[2024-06-24] MEDS ORDERED: SODI5PAK PO (10:03)
[2024-06-24] MEDS ORDERED: SODI10PA PO (10:04)
[2024-06-24 11:33] LABS: Chloride 90 mmol/L (98-107); Potassium 4.2 mmol/L (3.5-5.1); Sodium 130 mmol/L (136-145)
[2024-06-24 11:34] LABS: Anion Gap 21 (5-15); Carbon Dioxide 19 mmol/L (20-31)
[2024-06-24 11:35] LABS: Calcium 8.9 mg/dL (8.7-10.4)
[2024-06-24 11:39] LABS: BUN/Creatinine Ratio 10.9 (10.0-20.0); Glucose 54 mg/dL (74-106)
[2024-06-24 11:54] LABS: Blood Urea Nitrogen 75 mg/dL (9-23)
[2024-06-24] MEDS: DEXTROSE (50%) 50ML SYRG IV STA (13:06)
[2024-06-24] MEDS: DEXTROSE 50% SYRINGE 50 ML IV ONE (13:35)
[2024-06-24] MEDS: ACETAMINOPHEN 325 MG TAB PO ONE (21:36)
[2024-06-24] MEDS: GABAPENTIN 100 MG CAP PO ONE (21:36)
[2024-06-25] VITALS (9 sets, daily range): BP systolic 122–176; BP diastolic 60–103; PULSE 81–100; RESP 18–20; TEMP 97.7–98.9; O2SAT 99–100
[2024-06-25] MEDS: LABETALOL HCL 20 MG/4 ML VL IV ONE (01:52)
[2024-06-25] MEDS: NIFEdipine ER 30 MG TAB PO ONE (02:06)
[2024-06-25] MEDS: METOPROLOL SUCCINATE XL 50 MG TAB PO ONE (02:07)
[2024-06-25] MEDS: LABETALOL HCL 200 MG TAB PO ONE (08:53)
[2024-06-25 09:34] LABS: Basophils # (auto) 0 10 ^3/uL (0-0.2); Basophils % (auto) 0.4 % (0.0-2.0); Eosinophils # (auto) 0 10 ^3/uL (0-0.8); Hematocrit 31.9 % (36.0-46.0); Hemoglobin 10.5 g/dL (12.2-16.2); Lymphocytes # (auto) 0.6 10 ^3/uL (0.4-5.4); Lymphocytes % (auto) 6.5 % (10.0-50.0); Mean Corpuscular Hemoglobin 31.4 pg (28.0-32.0); Mean Corpuscular Hgb Conc. 32.8 g/dL (32.0-36.0); Mean Corpuscular Volume 95.5 fL (80.0-100.0); Monocytes # (auto) 0.9 10 ^3/uL (0-1.3); Monocytes % (auto) 10.5 % (0.0-12.0); Neutrophils # (auto) 7.3 10 ^3/uL (1.6-8.6); Neutrophils % (auto) 82.6 % (37.0-80.0); Platelet Count (auto) 305 10^3/uL (140-450); Red Blood Cells 3.34 10^6/uL (4.0-5.20); Red Cell Distribution Width 14.7 % (11.8-14.3); White Blood Cell 8.8 10^3/uL (4.4-10.8)
[2024-06-25 09:40] LABS: Anion Gap 13 (5-15); Carbon Dioxide 26 mmol/L (20-31); Chloride 99 mmol/L (98-107); Potassium 3.8 mmol/L (3.5-5.1); Sodium 138 mmol/L (136-145)
[2024-06-25 09:42] LABS: Calcium 9.9 mg/dL (8.7-10.4)
[2024-06-25 09:46] LABS: Glucose 86 mg/dL (74-106)
[2024-06-25 09:48] LABS: Blood Urea Nitrogen 24 mg/dL (9-23)
[2024-06-25] MEDS ORDERED: LABETALOL HCL 200 MG TAB PO SCH (10:00)
[2024-06-25] MEDS: hydrALAZINE HCL 20 MG/ML VL IV ONE (12:27)
[2024-06-25] MEDS: LABETALOL HCL 200 MG TAB PO SCH (18:35)
[2024-06-26] MEDS ORDERED: SODIUM CHL 0.9% 1000 ML BAG XX ONE (07:00)
[2024-06-26] MEDS ORDERED: EPOETIN ALFA-EPBX 4,000 UNIT/ML VIAL SC ONE (21:00)
== END 2024-06-25 23:30 | disposition home or self-care (01) | DRG 304 ==
LOC: EDBD 12:48 → ER 12:48 → TELE 23:16 → TELE-WESTW 23:16 → EDUNIT# 23:16 → TELE-WESTW 06-20 03:26
PROVIDERS: ADMIT Internal Medicine; ATTEND Internal Medicine
PROC: 5A1D70Z Performance of Urinary Filtration, Intermittent, Less than 6 Hours Per Day (ICD-10-PCS; principal; 2024-06-21)
PROC: 5A1D70Z Performance of Urinary Filtration, Intermittent, Less than 6 Hours Per Day (ICD-10-PCS; 2024-06-24)
DX: I16.1 Hypertensive emergency (principal); E43 Unspecified severe protein-calorie malnutrition; N18.6 End stage renal disease; R53.2 Functional quadriplegia; E87.1 Hypo-osmolality and hyponatremia; E87.20 Acidosis, unspecified; I50.32 Chronic diastolic (congestive) heart failure; Z68.1 Body mass index [BMI] 19.9 or less, adult; E87.5 Hyperkalemia; H54.8 Legal blindness, as defined in USA; E78.5 Hyperlipidemia, unspecified; I25.10 Atherosclerotic heart disease of native coronary artery without angina pectoris; Z20.822 Contact with and (suspected) exposure to COVID-19; E03.9 Hypothyroidism, unspecified; F41.9 Anxiety disorder, unspecified; D63.1 Anemia in chronic kidney disease; F32.A Depression, unspecified; I13.2 Hypertensive heart and chronic kidney disease with heart failure and with stage 5 chronic kidney disease, or end stage renal disease; E11.22 Type 2 diabetes mellitus with diabetic chronic kidney disease; E11.43 Type 2 diabetes mellitus with diabetic autonomic (poly)neuropathy; K31.84 Gastroparesis; Z89.511 Acquired absence of right leg below knee; Z89.512 Acquired absence of left leg below knee; Z89.611 Acquired absence of right leg above knee; Z79.02 Long term (current) use of antithrombotics/antiplatelets; Z79.899 Other long term (current) drug therapy; Z82.49 Family history of ischemic heart disease and other diseases of the circulatory system; Z83.3 Family history of diabetes mellitus; Z74.01 Bed confinement status; Z79.82 Long term (current) use of aspirin; Z89.612 Acquired absence of left leg above knee; Z99.2 Dependence on renal dialysis; Z98.61 Coronary angioplasty status
CPT/HCPCS: 36415; 70450; 71045; 80048; 80053; 80202; 82306; 82565; 82607; 82962; 83036; 83605; 83880; 84484; 84702; 85014; 85018; 85025; 85610; 85730; 87040; 87081; 87340; 87426; 87804; 90935; 93005; 93306; 99291; G0378; J1642; J2405; J2470